=== PATIENT | female | born 1955 | race Caucasian/White ===

== ENCOUNTER 2018-06-02 11:36 | Inpatient (IN) | payer OTHER ==
[~2018-06-02 11:36] MED LIST: CEFAZOLIN 1 GM/D5W 1 GM/50 ML BAG IVPB ONE; VANCOMYCIN 1 GRAM (PRE-DOCKED) 1,000 MG/250 ML BAG IVPB ONE
[2018-06-02 12:24] VITALS: BMI 26.3
[2018-06-02] MEDS ORDERED: BUPIVACAINE LIPOSOME/PF (EXPAREL) 266 MG/20 ML VIAL ONE (13:08)
[2018-06-02] MEDS ORDERED: MIDAZOLAM HCL 2 MG/2 ML SINGLE DOSE VIAL ONE (13:08)
[2018-06-02] MEDS ORDERED: BUPIVACAINE HCL/PF 0.5% (5MG/ML) 10 ML VIAL ONE (13:40)
[2018-06-02] MEDS ORDERED: SUCCINYLCHOLINE CHLORIDE 200 MG/10 ML VIAL ONE (13:43)
[2018-06-02] MEDS ORDERED: PROPOFOL 20 ML ONE ×2 (13:43→14:38)
[2018-06-02] MEDS ORDERED: ceFAZolin SODIUM 1 GM VIAL ONE (13:56)
[2018-06-02] MEDS ORDERED: ONDANSETRON 4 MG/2 ML VIAL ONE (13:56)
[2018-06-02] MEDS ORDERED: DEXAMETHASONE SOD PHOSPHATE 4 MG/1 ML VIAL ONE (13:56)
[2018-06-02] MEDS ORDERED: VANCOMYCIN 1,000 MG VIAL (RESTRICTED TO ID ONLY) ONE (14:30)
--- NOTE | 2018-06-02 15:59 | PN ---
Progress Note (short form) - Note Progress Note: 63F s/p RIGHT total knee replacement POD #0. -Pain control. -DVT PPx: -Chemical: Restart Plavix. -Mechanical: MARIPOSA's, SCD's. -Incentive spirometry q15 min. -PT/OT/Rehab, OOB. -WBAT RLE. -Antibiotics: Ancef x 2 post op doses. -f/u post-op trial of void. -f/u drain output; ok to d/c when <30cc/8 hrs. -Diet as tolerated. -Keep dressing clean & dry. -Care per medical hospitalist team. -f/u [facility] [place] office 06/11/2017; call for appointment; . -Will follow. Donald Fishman MD (Orthopaedic Surgery).
--- NOTE | 2018-06-02 16:02 | OP ---
Operative Note - Note: Operative Date: 06/02/18 Pre-Operative Diagnosis: Right knee DJD Operation: Right TKA Implants: Fabiana Triathlon Cementless. Femur - 5. Tibia - 4, CR. Poly - 9mm , CS. Patella - 31mm, symmetric Post-Operative Diagnosis: Same as Pre-op Surgeon: Donald Fishman Rail Assembler: Landry Fishman Anesthesiologist/RIPENING ROOM ATTENDANT: Wilman Abad Anesthesia: Spinal Specimens Removed: Bone, soft tissue Estimated Blood Loss (mls): 50 Drains & Tubes with Location: 1 x deep HemoVac Fluid Volume Replaced (mls): 1,000 (Crystalloid) Operative Report Dictated: Yes
[2018-06-02] MEDS ORDERED: MAG HYDROX/AL HYDROX/SIMETH 30 ML UNIT-DOSE CUP PO PRN (16:03)
[2018-06-02] MEDS ORDERED: ONDANSETRON 4 MG/2 ML VIAL IVPUSH PRN ×2 (16:03→16:11)
[2018-06-02] MEDS ORDERED: MAGNESIUM HYDROX 2400MG/30ML ORAL SUSPENSION 30 ML CUP PO PRN (16:03)
[2018-06-02] MEDS ORDERED: oxyCODONE HCL 5 MG TABLET PO PRN (16:11)
[2018-06-02] MEDS ORDERED: PROMETHAZINE HCL 25 MG/1 ML VIAL IVPUSH PRN (16:11)
[2018-06-02] MEDS ORDERED: EXENATIDE MICROSPHERES 2 MG SQ SCH (16:15)
[2018-06-02] MEDS ORDERED: LACTATED RINGERS SOLUTION 1,000 ML IV SCH (16:15)
[2018-06-02] MEDS ORDERED: ACETAMINOPHEN 325 MG TABLET (FP) ONE (16:41)
--- NOTE | 2018-06-02 16:56 | CONSULT ---
Consultation: REQUESTING PROVIDER: Dr. Donald Fishman CONSULT REQUEST: We have been asked to medically evaluate this patient post- operatively. HISTORY OF PRESENT ILLNESS: 63 year-old female with a PMH significant for HTN, DM, hypothyroidism, PAD s/p right SFA stent on Plavix, right knee degenerative disease s/p right total knee replacement earlier today. REVIEW OF SYSTEMS: CONSTITUTIONAL: Absent: fever, chills, diaphoresis, generalized weakness, malaise, loss of appetite, weight change HEENT: Absent: rhinorrhea, nasal congestion, throat pain, throat swelling, difficulty swallowing, mouth swelling, ear pain, eye pain, visual changes CARDIOVASCULAR: Absent: chest pain, syncope, palpitations, irregular heart rate, lightheadedness , peripheral edema RESPIRATORY: Absent: cough, shortness of breath, dyspnea with exertion, orthopnea, wheezing, stridor, hemoptysis GASTROINTESTINAL: Absent: abdominal pain, abdominal distension, nausea, vomiting, diarrhea, constipation, melena, hematochezia GENITOURINARY: Absent: dysuria, frequency, urgency, hesitancy, hematuria, flank pain, genital pain MUSCULOSKELETAL: Absent: myalgia, arthralgia, joint swelling, back pain, neck pain SKIN: Absent: rash, itching, pallor HEMATOLOGIC/IMMUNOLOGIC: Absent: easy bleeding, easy bruising, lymphadenopathy, frequent infections ENDOCRINE: Absent: unexplained weight gain, unexplained weight loss, heat intolerance, cold intolerance NEUROLOGIC: Absent: headache, focal weakness or paresthesias, dizziness, unsteady gait, seizure, mental status changes, bladder or bowel incontinence PSYCHIATRIC: Absent: anxiety, depression, suicidal or homicidal ideation, hallucinations. PHYSICAL EXAMINATION Vital Signs - 24 hr 06/02/18 06/02/18 06/02/18 11:41 12:22 12:23 Temperature 98.9 F 98.9 F Pulse Rate 75 75 75 Respiratory 19 19 19 Rate Blood Pressure 121/73 121/73 121/73 GENERAL: Awake, alert, and fully oriented, in no acute distress. HEAD: Normal with no signs of trauma. EYES: Pupils equal, round and reactive to light, extraocular movements intact, sclera anicteric, conjunctiva clear. LUNGS: Breath sounds equal, clear to auscultation bilaterally. No wheezes, and no crackles. No accessory muscle use. HEART: Regular rate and rhythm, S1 and S2 ABDOMEN: Soft, nontender, not distended UPPER EXTREMITIES: 2+ pulses, warm, well-perfused. No cyanosis. No clubbing. Cap refill <2 seconds. No peripheral edema. LOWER EXTREMITIES: SCDs, TEDs bilaterally; surgical wrapping c/d/i right knee; Hemovac drain with dark sanguinous output ~350cc's NEUROLOGICAL: Cranial nerves II-XII intact. Normal speech Laboratory Results - last 24 hr 06/02/18 12:20 POC Glucometer 102 Active Medications Generic Name Dose Route Start Last Admin Trade Name Freq PRN Reason Stop Dose Admin Acetaminophen 650 mg 06/02/18 16:15 Tylenol - PO 06/05/18 16:14 Q6H HUYEN Al Hydroxide/Mg Hydroxide 30 ml 06/02/18 16:03 Mylanta Oral Suspension - PO Q4H PRN DYSPEPSIA Aspirin 81 mg 06/03/18 10:00 Asa - PO DAILY [facility] Atorvastatin Calcium 10 mg 06/02/18 22:00 Lipitor - PO HS [facility] Clopidogrel Bisulfate 75 mg 06/03/18 10:00 Plavix - PO DAILY [facility] Duloxetine HCl 20 mg 06/03/18 10:00 Cymbalta - PO DAILY [facility] Fenofibric Acid 45 mg 06/03/18 10:00 Trilipix - PO DAILY [facility] Fentanyl 50 mcg 06/02/18 16:11 Sublimaze Injection - IVPUSH [id number] PRN PAIN-PACU ORDER X 4 DOSES ONLY Glipizide 2.5 mg 06/03/18 10:00 Glucotrol Xl - PO DAILY@0700 [facility] Hydrochlorothiazide 25 mg 06/03/18 10:00 Hctz - PO DAILY [facility] Cefazolin Sodium 1 gm in 50 mls @ 100 mls/hr 06/02/18 18:00 Ancef 1 Gm Premixed Ivpb - IVPB 06/03/18 02:29 Q8H-IV [facility] Lactated Ringer's 1,000 mls @ 125 mls/hr 06/02/18 16:15 Lactated Ringers Solution IV 06/03/18 06:00 ASDIR [facility] Insulin Detemir 15 units 06/02/18 22:00 Levemir Vial SQ HS [facility] Lisinopril 20 mg 06/03/18 10:00 Prinivil PO DAILY [facility] Magnesium Hydroxide 30 ml 06/02/18 16:03 Milk Of Magnesia - PO PRN PRN CONSTIPATION Non-Formulary Medication 2 mg 06/02/18 16:15 Exenatide Microspheres [Bydureon Pen] SQ Q7D [facility] Ondansetron HCl 4 mg 06/02/18 16:03 Zofran Injection IVPUSH Q6H PRN NAUSEA Oxycodone HCl 5 mg 06/02/18 16:11 Roxicodone - PO Q3H PRN PAIN LEVEL 1-5 Oxycodone HCl 10 mg 06/02/18 16:11 Roxicodone - PO Q3H PRN PAIN LEVEL 6-10 Oxycodone HCl 10 mg 06/02/18 22:00 Oxycontin - PO 06/05/18 16:12 BID [facility] Pantoprazole Sodium 40 mg 06/03/18 10:00 Protonix - PO DAILY [facility] Promethazine HCl 12.5 mg 06/02/18 16:11 Phenergan Injection - IVPUSH Q6H PRN NAUSEA-FOR RESCUE AFTER 15 MIN Senna/Docusate Sodium 1 tablet 06/02/18 22:00 Pericolace - PO BID [facility] ASSESSMENT/PLAN: 63 year-old female with a PMH significant for HTN, IDDM, hypothyroidism, PAD s/ p right SFA stent on Plavix, right knee degenerative disease s/p right total knee replacement earlier today. Right total knee replacement --POD #0 --Hemovac put out 350cc's dark sanguinous fluid in 45 minutes after arriving on floor; stat cbc done shows Hgb 14.4; repeat cbc q4h; type and screen --borderline hypotensive; give NS x 1L bolus --perioperative antibiotics per surgery --pain management per surgery --ASA 81mg daily --continue Plavix Type II IDDM --Levemir 15U --Novolog sliding scale coverage Hypertension --hold anti-hypertensives, lasix due to hypotension Hyperlipidemia --continue atorvastatin, fenofibric acid FEN Fluids: NS @ 75mL/hr Electrolytes: replete as indicated Nutrition: diabetic DVT prophylaxis: ASA 81mg daily, Plavix, SCDs, TEDs, oob, ambulation Physical therapy Dispo: We will continue to follow the patient. Thank you for this consultative opportunity. Visit type - Emergency Visit Emergency Visit: No - New Patient This patient is new to me today: Yes Date on this admission: 06/02/18 - Critical Care Critical Care patient: No
[2018-06-02] MEDS ORDERED: CEFAZOLIN 1 GM/D5W 1 GM/50 ML BAG IVPB SCH (18:00)
--- NOTE | 2018-06-02 18:36 | OP ---
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 OPERATION PERFORMED: Incision and drainage, debridement of tissues, insertion of a wound VAC after extensive washout with 5 L of saline, cleansing of the tissues with Betadine scrub to remove biofilm and preoperative and postoperative cultures taken, wound VAC applied. OPERATION DETAILS: Patient brought to the operating room, placed in lateral decubitus position left side up. The routine bolster technique utilized. A pillow was placed between the knees. The original dressings were removed. The wounds appeared with usual shiny exudative seropurulent appearance. Cultures were sent to the Lab. Washout was after routine isolation draping in a window drape fashion enabling a thorough washout. The tissue was then cleansed and washed with Betadine scrub to rid all tissues, including the remaining implant, which was an endoprosthetic implant in the femoral bone bed to be cleansed appropriately of and rid of all biofilm. Further 5 L of washing out was then performed. Sponges were placed for the wound VAC in situ filling the entire cavity. This was all sealed with the appropriate stick-on plastic sealants, and the wound VAC started with successful suction being applied appropriately. Patient was extricated out of the OR hoping to be able to close this wound soon. MD ADEBAYO Soler/[id number]
--- NOTE | 2018-06-02 19:03 | OP ---
DATE OF OPERATION: 06/02/2018 SURGEON: Donald Fishman M.D. [employer]ION SUPPORT SPECIALIST: Landry Fishman M.D., Nori Hernandez. PREOPERATIVE DIAGNOSIS: Tricompartment osteoarthritis right knee. POSTOPERATIVE DIAGNOSIS: Tricompartment osteoarthritis right knee in the presence of a wound in a patient who had a previous stent in the superficial femoral artery on Plavix, (now off Plavix for 3 weeks). No tourniquet utilized. ANTIBIOTICS IN PREOPERATIVE: 2 g Kefzol, 1 g vancomycin. DESCRIPTION OF PROCEDURE: The patient was correctly identified, brought in operating room. The right lower extremity was prepped, pre-draped in the routine manner with Betadine scrub solution, wiped with alcohol, DuraPrep applied. Indication, patient had continuous osteoarthritis right knee for symptoms which all failed conservative treatment, but because of the stenting inserted prior to this procedure, it was elected to not apply a tourniquet. The incision was midline. Hemostasis was achieved, as we went along layer for layer. Skin operated with a 15 blade knife , subcutaneous tissue right down to the entire thigh fascia. The medial border of the tibial tubercle and medial aspect of the patella ligament was identified with Bovie. The entire proximal aspect of the tibia was freed off the bone bed and the incision from tibial tubercle alongside the medial border of the patella ligament, and then crossing directly posteriorly to the linea aspera and the intramuscular septum enabled an easy access to the vastus medialis. The epimysium of the vastus medialis was dissected from the quadriceps tendon right down to virtually linea aspera, thus freeing the entire muscle. Hemostasis achieved as best we could as we went along. Because of the lack of tourniquet, it was elected to insert noncemented implants. The appropriate jig systems for the patella, femur, and tibia were utilized. The femur was cut to plus 10, that is 2 mm proximalization of the joint line because of fixation deformity. The external rotation was set at 3 degrees, and the valgus cut was 4 degrees. The tibia was cut to neutral. The appropriate jigs followed the appropriate seating of the tibia inserted, that is the keal and 4 lugholes. Once this had been performed, the flexion/extension gaps were measured, and the trialing components measured. The size femur was a size 5, the tibia was size 4. The knee was placed through a full range of movement with no complications with a 9 mm polyethylene spacer appropriately. As a result of this finding, the soft tissue components of the bone bed were washed out. The bony elements were left alone, no washout, for fear of removing biological products, and the implants were seated with appropriate impaction of the implants and seated accurately onto the bone beds appropriately. The patella tracked well without any thumb persuasion. Closure : Fascia 1 Vicryl, subcutaneous 1 and 2-0 Vicryl, skin 3-0 Monocryl with Steri- Strips, drainage one 8-inch Hemovac x1. No complications. Blood loss minimal, no more than 100 mL. MD ADEBAYO Soler/[id number] MTDD
[2018-06-02] MEDS: oxyCODONE HCL 5 MG TABLET PO PRN (19:35)
[2018-06-02] MEDS ORDERED: SODIUM CHLORIDE 1,000 ML IV STA (19:49)
[2018-06-02 19:52] LABS: BASO % 0.2 % (0-2.0); EOS % 0.2 % (0-4.5); HEMATOCRIT 44.5 % (32.4-45.2); HEMOGLOBIN 14.4 GM/dl (10.7-15.3); LYMPH % 9.7 % (8-40); MCHC 32.4 g/dl (32.0-36.0); MEAN CELL VOLUME 92.5 fl (80-96); MEAN PLT VOLUME 9.4 fl (7.5-11.1); MONO % 0.7 % (3.8-10.2); NEUT % 89.2 % (42.8-82.8); PLATELET COUNT 315 K/MM3 (134-434); RBC 4.81 M/mm3 (3.60-5.2); RDW 12.8 % (11.6-15.6); WHITE BLOOD COUNT 13.7 K/mm3 (4.0-10.8)
[2018-06-02] MEDS ORDERED: SODIUM CHLORIDE 1,000 ML IV SCH (20:00)
[2018-06-02 20:08] LABS: ALBUMIN 3.8 g/dl (3.5-5.0); ALK PHOS 85 U/L (32-92); ANION GAP 10 MMOL/L (8-16); BILIRUBIN,TOTAL 0.8 mg/dl (0.2-1.0); BLOOD UREA NITROGEN 23 mg/dl (7-18); CALCIUM 9.2 mg/dl (8.4-10.2); CHLORIDE 102 mmol/L (98-107); CO2 24 mmol/L (22-28); GLUCOSE,RANDOM 210 mg/dl (74-106); MAGNESIUM 1.9 mg/dL (1.8-2.4); POTASSIUM 4.7 mmol/L (3.5-5.1); SGOT/AST 18 U/L (10-42); SGPT/ALT 13 U/L (10-40); SODIUM 136 mmol/L (136-145); TOT PROT 6.4 g/dl (6.4-8.3)
[2018-06-02] MEDS: ATORVASTATIN CA 10 MG TABLET (FP) PO SCH (21:49)
[2018-06-02] MEDS: ACETAMINOPHEN 325 MG TABLET (FP) PO SCH (21:49)
[2018-06-02] MEDS: oxyCODONE HCL 10 MG SUSTAINED ACTING TABLET PO SCH (21:50)
[2018-06-02] MEDS: INSULIN SLIDING SCALE (NOVOLOG) 1 VIAL SQ SCH (21:50)
[2018-06-02] MEDS: INSULIN (LEVEMIR) 100 UNITS/ML UNITS SQ SCH (21:51)
[2018-06-02] MEDS: SENNOSIDES/DOCUSATE COMBO (SENNA PLUS) TABLET (UD) PO SCH (21:51)
[2018-06-02] MEDS ORDERED: PATIENT'S OWN MEDICATION (NON-FORMULARY) (Insulin Detemir [Levemir Flextouch] 15 UNIT) SQ SCH (22:00)
[2018-06-02] MEDS: CEFAZOLIN 1 GM/D5W 1 GM/50 ML BAG IVPB SCH (22:23)
[2018-06-02 22:48] LABS: HEMATOCRIT 37.2 % (32.4-45.2); HEMOGLOBIN 12.1 GM/dl (10.7-15.3); MCH 30.2 pg (25.7-33.7); MCHC 32.7 g/dl (32.0-36.0); MEAN CELL VOLUME 92.4 fl (80-96); MEAN PLT VOLUME 8.9 fl (7.5-11.1); PLATELET COUNT 269 K/MM3 (134-434); RBC 4.02 M/mm3 (3.60-5.2); RDW 12.5 % (11.6-15.6); WHITE BLOOD COUNT 12.7 K/mm3 (4.0-10.8)
[2018-06-03] MEDS: oxyCODONE HCL 5 MG TABLET PO PRN ×4 (03:11→21:02)
[2018-06-03 04:01] LABS: HEMATOCRIT 32.7 % (32.4-45.2); HEMOGLOBIN 11.6 GM/dL (10.7-15.3); MCH 31.6 pg (25.7-33.7); MCHC 35.5 g/dl (32.0-36.0); PLATELET COUNT 273 K/MM3 (134-434); RBC 3.68 M/mm3 (3.60-5.2); RDW 13.3 % (11.6-15.6); WHITE BLOOD COUNT 11.5 K/mm3 (4.0-10.0)
[2018-06-03] MEDS: INSULIN SLIDING SCALE (NOVOLOG) 1 VIAL SQ SCH ×4 (06:27→21:43)
[2018-06-03] MEDS: ACETAMINOPHEN 325 MG TABLET (FP) PO SCH ×4 (06:28→21:45)
[2018-06-03] MEDS: CEFAZOLIN 1 GM/D5W 1 GM/50 ML BAG IVPB SCH (06:33)
[2018-06-03 08:08] LABS: BASO % 0.3 % (0-2.0); EOS % 0.1 % (0-4.5); HEMATOCRIT 34.9 % (32.4-45.2); HEMOGLOBIN 11.4 GM/dl (10.7-15.3); LYMPH % 14.1 % (8-40); MCH 30.1 pg (25.7-33.7); MCHC 32.5 g/dl (32.0-36.0); MEAN CELL VOLUME 92.5 fl (80-96); MONO % 5.8 % (3.8-10.2); NEUT % 79.7 % (42.8-82.8); PLATELET COUNT 290 K/MM3 (134-434); RBC 3.78 M/mm3 (3.60-5.2); RDW 12.7 % (11.6-15.6); WHITE BLOOD COUNT 11.1 K/mm3 (4.0-10.8)
[2018-06-03 08:11] LABS: INR 1.16 (0.82-1.09)
[2018-06-03 08:26] LABS: ALBUMIN 3.1 g/dl (3.5-5.0); ALK PHOS 64 U/L (32-92); ANION GAP 6 MMOL/L (8-16); BILIRUBIN,TOTAL 0.7 mg/dl (0.2-1.0); BLOOD UREA NITROGEN 21 mg/dl (7-18); CALCIUM 8.6 mg/dl (8.4-10.2); CHLORIDE 105 mmol/L (98-107); CO2 25 mmol/L (22-28); CREATININE 0.9 mg/dl (0.6-1.3); GLUCOSE,RANDOM 181 mg/dl (74-106); MAGNESIUM 1.7 mg/dL (1.8-2.4); POTASSIUM 4.4 mmol/L (3.5-5.1); SGOT/AST 17 U/L (10-42); SGPT/ALT 11 U/L (10-40); SODIUM 136 mmol/L (136-145); TOT PROT 5.4 g/dl (6.4-8.3)
--- NOTE | 2018-06-03 08:51 | PN ---
Progress Note (short form) - Note Progress Note: 63F s/p Right knee replacement, seen sitting up in chair. Pt states that her pain has been well controlled, she has walked to the bathroom with help. Pt denies any fever, chills, n/v. Pt is urinating well. Last Vital Signs Temp Pulse Resp BP Pulse Ox 98.3 F 75 20 115/57 L 100 06/03/18 06:00 06/03/18 06:00 06/03/18 08:06 06/03/18 06:00 06/03/18 08:06 CBC, BMP 06/03/18 07:35 06/03/18 07:35 PE: Gen: A&O x3 Resp: breathing comfortably Ext: RLE no weakness or numbness, dressing in place clean with no erythema or discharge. Drain shows serosanguinous drainage. Out: 660ml Problem List - Problems (1) Total knee replacement status Assessment/Plan: Plan -will keep drain in until tomorrow -follow up with PT today -pt states would really like to be discharged home, will see how she does with PT -pain management, -DVT ppx
--- NOTE | 2018-06-03 09:43 | PN ---
Progress Note (short form) - Note Progress Note: 63F POD1 s/p R TKR under spinal anesthetic with peripheral nerve blocks for post operative pain relief. Pt states that pain is well controlled and reports no anesthetic complications. AVSS. Motor and sensory exam intact in bilateral lower extremities. Continue current regimen.
[2018-06-03] MEDS ORDERED: PT OWN MED DRAWER 7, Y5N ONE (09:44)
[2018-06-03] MEDS: SENNOSIDES/DOCUSATE COMBO (SENNA PLUS) TABLET (UD) PO SCH ×2 (09:49→21:03)
[2018-06-03] MEDS: oxyCODONE HCL 10 MG SUSTAINED ACTING TABLET PO SCH ×2 (09:50→21:03)
[2018-06-03] MEDS ORDERED: DULoxetine HCL 20 MG CAPSULE.DR (FP) PO SCH (10:00)
[2018-06-03] MEDS ORDERED: ASPIRIN 81 MG CHEWABLE TABLETS PO SCH (10:00)
[2018-06-03] MEDS ORDERED: HYDROCHLOROTHIAZIDE 25 MG TABLET (FP) PO SCH ×2 (10:00→18:45)
[2018-06-03] MEDS ORDERED: PANTOPRAZOLE 40 MG TABLET (FP) PO SCH (10:00)
[2018-06-03] MEDS ORDERED: LISINOPRIL 20 MG TABLET (FP) PO SCH (10:00)
[2018-06-03] MEDS ORDERED: FENOFIBRIC ACID 45 MG CAP PO SCH (10:00)
[2018-06-03] MEDS ORDERED: glipiZIDE-XL 2.5 MG TAB.ER.24 PO SCH (10:00)
[2018-06-03] MEDS ORDERED: CLOPIDOGREL BISULFATE 75 MG TABLET (FP) PO SCH (10:00)
[2018-06-03] MEDS ORDERED: PATIENT'S OWN MEDICATION (NON-FORMULARY) (Lisinopril/Hydrochlorothiazide [Lisinopril-Hctz PO SCH (10:00)
[2018-06-03] MEDS ORDERED: INSULIN (NOVOLOG) ASPART 100 UNITS/ML 10ML VIAL ONE (16:56)
--- NOTE | 2018-06-03 18:16 | PN ---
Physical Exam: SUBJECTIVE: Patient seen and examined in PT room. Some pain with PT but pushed through. OBJECTIVE: Vital Signs Period Temp Pulse Resp BP Sys/[place] Pulse Ox Last 24 Hr 97.8 F-98.6 F 66-90 18-20 103-142/54-67 97-100 GENERAL: Awake, alert, and fully oriented, in no acute distress. HEAD: Normal with no signs of trauma. EYES: Pupils equal, round and reactive to light, extraocular movements intact, sclera anicteric, conjunctiva clear. LUNGS: Breath sounds equal, clear to auscultation bilaterally. No wheezes, and no crackles. No accessory muscle use. HEART: Regular rate and rhythm, S1 and S2 ABDOMEN: Soft, nontender, not distended UPPER EXTREMITIES: 2+ pulses, warm, well-perfused. No cyanosis. No clubbing. Cap refill <2 seconds. No peripheral edema. LOWER EXTREMITIES: SCDs, TEDs bilaterally; surgical wrapping c/d/i right knee NEUROLOGICAL: Cranial nerves II-XII intact. Normal speech Laboratory Results - last 24 hr 06/02/18 06/02/18 06/02/18 19:30 19:30 19:30 WBC 13.7 H RBC 4.81 Hgb 14.4 Hct 44.5 MCV 92.5 MCH 30.0 MCHC 32.4 RDW 12.8 Plt Count 315 MPV 9.4 Absolute Neuts (auto) 12.3 Neutrophils % 89.2 H Lymphocytes % 9.7 Monocytes % 0.7 L Eosinophils % 0.2 Basophils % 0.2 PT with INR INR PTT (Actin FS) Sodium 136 Potassium 4.7 Chloride 102 Carbon Dioxide 24 Anion Gap 10 BUN 23 H Creatinine 1.0 Creat Clearance w eGFR 56.00 POC Glucometer Random Glucose 210 H Calcium 9.2 Magnesium 1.9 Total Bilirubin 0.8 AST 18 ALT 13 Alkaline Phosphatase 85 Total Protein 6.4 Albumin 3.8 Blood Type O POSITIVE Antibody Screen Negative 06/02/18 06/02/18 06/02/18 19:30 21:41 22:30 WBC 12.7 H RBC 4.02 Hgb 12.1 Hct 37.2 D MCV 92.4 MCH 30.2 MCHC 32.7 RDW 12.5 Plt Count 269 MPV 8.9 Absolute Neuts (auto) Neutrophils % Lymphocytes % Monocytes % Eosinophils % Basophils % PT with INR INR PTT (Actin FS) 26.2 Sodium Potassium Chloride Carbon Dioxide Anion Gap BUN Creatinine Creat Clearance w eGFR POC Glucometer 363 Random Glucose Calcium Magnesium Total Bilirubin AST ALT Alkaline Phosphatase Total Protein Albumin Blood Type Antibody Screen 06/03/18 06/03/18 06/03/18 03:00 03:00 06:26 WBC 11.5 H RBC 3.68 Hgb 11.6 Hct 32.7 MCV 89.0 MCH 31.6 MCHC 35.5 RDW 13.3 Plt Count 273 MPV 9.0 Absolute Neuts (auto) Neutrophils % Lymphocytes % Monocytes % Eosinophils % Basophils % PT with INR INR PTT (Actin FS) Sodium Potassium Chloride Carbon Dioxide Anion Gap BUN Creatinine Creat Clearance w eGFR POC Glucometer 184 Random Glucose Calcium Magnesium Total Bilirubin AST ALT Alkaline Phosphatase Total Protein Albumin Blood Type O POSITIVE Antibody Screen 06/03/18 06/03/18 06/03/18 07:35 07:35 07:35 WBC 11.1 H RBC 3.78 Hgb 11.4 Hct 34.9 MCV 92.5 MCH 30.1 MCHC 32.5 RDW 12.7 Plt Count 290 MPV 9.0 Absolute Neuts (auto) 8.9 Neutrophils % 79.7 Lymphocytes % 14.1 Monocytes % 5.8 Eosinophils % 0.1 Basophils % 0.3 PT with INR 13.0 INR 1.16 PTT (Actin FS) Sodium 136 Potassium 4.4 Chloride 105 Carbon Dioxide 25 Anion Gap 6 L BUN 21 H Creatinine 0.9 Creat Clearance w eGFR > 60 POC Glucometer Random Glucose 181 H Calcium 8.6 Magnesium 1.7 L Total Bilirubin 0.7 AST 17 ALT 11 Alkaline Phosphatase 64 D Total Protein 5.4 L Albumin 3.1 L Blood Type Antibody Screen 06/03/18 06/03/18 11:09 16:53 WBC RBC Hgb Hct MCV MCH MCHC RDW Plt Count MPV Absolute Neuts (auto) Neutrophils % Lymphocytes % Monocytes % Eosinophils % Basophils % PT with INR INR PTT (Actin FS) Sodium Potassium Chloride Carbon Dioxide Anion Gap BUN Creatinine Creat Clearance w eGFR POC Glucometer 180 229 Random Glucose Calcium Magnesium Total Bilirubin AST ALT Alkaline Phosphatase Total Protein Albumin Blood Type Antibody Screen Active Medications Generic Name Dose Route Start Last Admin Trade Name Freq PRN Reason Stop Dose Admin Acetaminophen 650 mg 06/02/18 16:15 06/03/18 16:58 Tylenol - PO 06/05/18 16:14 650 mg Q6H HUYEN Administration Al Hydroxide/Mg Hydroxide 30 ml 06/02/18 16:03 Mylanta Oral Suspension - PO Q4H PRN DYSPEPSIA Aspirin 81 mg 06/03/18 10:00 06/03/18 09:49 Asa - PO 81 mg DAILY HUYEN Administration Atorvastatin Calcium 10 mg 06/02/18 22:00 06/02/18 21:49 Lipitor - PO 10 mg HS HUYEN Administration Clopidogrel Bisulfate 75 mg 06/03/18 10:00 06/03/18 09:49 Plavix - PO 75 mg DAILY HUYEN Administration Duloxetine HCl 20 mg 06/03/18 10:00 06/03/18 09:49 Cymbalta - PO 20 mg DAILY HUYEN Administration Fenofibric Acid 45 mg 06/03/18 10:00 06/03/18 09:50 Trilipix - PO 45 mg DAILY HUYEN Administration Sodium Chloride 1,000 mls @ 75 mls/hr 06/02/18 20:00 06/02/18 21:59 Normal Saline - IV 75 mls/hr ASDIR HUYEN Administration Insulin Aspart 1 vial 06/02/18 22:00 06/03/18 16:58 Novolog Vial Sliding Scale - SQ 4 units ACHS HUYEN Administration Protocol Insulin Detemir 15 units 06/02/18 22:00 06/02/18 21:51 Levemir Vial SQ 15 units HS HUYEN Administration Magnesium Hydroxide 30 ml 06/02/18 16:03 Milk Of Magnesia - PO PRN PRN CONSTIPATION Ondansetron HCl 4 mg 06/02/18 16:03 06/03/18 12:34 Zofran Injection IVPUSH 4 mg Q6H PRN Administration NAUSEA Oxycodone HCl 5 mg 06/02/18 16:11 Roxicodone - PO Q3H PRN PAIN LEVEL 1-5 Oxycodone HCl 10 mg 06/02/18 16:11 06/03/18 11:06 Roxicodone - PO 10 mg Q3H PRN Administration PAIN LEVEL 6-10 Oxycodone HCl 10 mg 06/02/18 22:00 06/03/18 09:50 Oxycontin - PO 06/05/18 16:12 10 mg BID HUYEN Administration Pantoprazole Sodium 40 mg 06/03/18 10:00 06/03/18 09:49 Protonix - PO 40 mg DAILY HUYEN Administration Senna/Docusate Sodium 1 tablet 06/02/18 22:00 06/03/18 09:49 Pericolace - PO 1 tablet BID HUYEN Administration ASSESSMENT/PLAN: 63 year-old female with a PMH significant for HTN, IDDM, hypothyroidism, PAD s/ p right SFA stent on Plavix, right knee degenerative disease s/p right total knee replacement earlier today. Right total knee replacement --POD #1 --post-op hypotension resolved with IV fluids; Hgb stable --Hemovac drain still in situ 245cc's output today --perioperative antibiotics complete --pain management per surgery --ASA 81mg daily --continue Plavix --bowel regimen Type II IDDM --Levemir 15U --Novolog sliding scale coverage Hypertension --resume lisinopril, HCTZ Hyperlipidemia --continue atorvastatin, fenofibric acid FEN Fluids: PO intake adequate Electrolytes: replete as indicated Nutrition: diabetic DVT prophylaxis: ASA 81mg daily, SCDs, TEDs, oob, ambulation Physical therapy Dispo: We will continue to follow the patient. Thank you for this consultative opportunity. Visit type - Emergency Visit Emergency Visit: No - New Patient This patient is new to me today: No - Critical Care Critical Care patient: No
[2018-06-03] MEDS ORDERED: ALBUTEROL SO4 8 GM HFA INHALER IH PRN (18:22)
[2018-06-03] MEDS ORDERED: LISINOPRIL 10 MG TABLET (FP) PO SCH (18:45)
[2018-06-03] MEDS: ATORVASTATIN CA 10 MG TABLET (FP) PO SCH (21:03)
[2018-06-03] MEDS: INSULIN (LEVEMIR) 100 UNITS/ML UNITS SQ SCH (21:46)
[2018-06-03] MEDS ORDERED: POLYETHYLENE GLYCOL 3350 119 GM BTL PO SCH (22:00)
[2018-06-03] MEDS ORDERED: DOCUSATE SODIUM 100 MG CAPSULE (FP) PO SCH (22:00)
[2018-06-04] MEDS: oxyCODONE HCL 5 MG TABLET PO PRN (01:08)
[2018-06-04] MEDS: ACETAMINOPHEN 325 MG TABLET (FP) PO SCH (04:24)
[2018-06-04 06:44] VITALS: BP 121/63; PULSE 83; TEMP 98.6
[2018-06-04] MEDS: INSULIN SLIDING SCALE (NOVOLOG) 1 VIAL SQ SCH (06:54)
--- NOTE | 2018-06-04 08:36 | PN ---
Physical Exam: SUBJECTIVE: Patient seen and examined OBJECTIVE: Vital Signs Period Temp Pulse Resp BP Sys/[place] Pulse Ox Last 24 Hr 98.3 F-98.6 F 66-83 16-19 103-140/52-64 96-100 Laboratory Results - last 24 hr 06/03/18 06/03/18 06/03/18 11:09 16:53 21:32 POC Glucometer 180 229 150 06/04/18 06:43 POC Glucometer 141 Active Medications Generic Name Dose Route Start Last Admin Trade Name Freq PRN Reason Stop Dose Admin Acetaminophen 650 mg 06/02/18 16:15 06/04/18 04:24 Tylenol - PO 06/05/18 16:14 650 mg Q6H HUYEN Administration Al Hydroxide/Mg Hydroxide 30 ml 06/02/18 16:03 Mylanta Oral Suspension - PO Q4H PRN DYSPEPSIA Albuterol Sulfate 1 puff 06/03/18 18:22 Ventolin Hfa Inhaler - IH Q4H PRN ASTHMA Aspirin 81 mg 06/03/18 10:00 06/03/18 09:49 Asa - PO 81 mg DAILY HUYEN Administration Atorvastatin Calcium 10 mg 06/02/18 22:00 06/03/18 21:03 Lipitor - PO 10 mg HS HUYEN Administration Clopidogrel Bisulfate 75 mg 06/03/18 10:00 06/03/18 09:49 Plavix - PO 75 mg DAILY HUYEN Administration Docusate Sodium 300 mg 06/03/18 22:00 06/03/18 21:03 Colace - PO 300 mg HS HUYEN Administration Duloxetine HCl 20 mg 06/03/18 10:00 06/03/18 09:49 Cymbalta - PO 20 mg DAILY HUYEN Administration Fenofibric Acid 45 mg 06/03/18 10:00 06/03/18 09:50 Trilipix - PO 45 mg DAILY HUYEN Administration Hydrochlorothiazide 25 mg 06/03/18 18:45 06/03/18 19:13 Hctz - PO Not Given DAILY HUYEN Insulin Aspart 1 vial 06/02/18 22:00 06/04/18 06:54 Novolog Vial Sliding Scale - SQ Not Given ACHS [facility] Protocol Insulin Detemir 15 units 06/02/18 22:00 06/03/18 21:46 Levemir Vial SQ 15 units HS HUYEN Administration Lisinopril 20 mg 06/04/18 08:33 Prinivil PO DAILY HUYEN Magnesium Hydroxide 30 ml 06/02/18 16:03 Milk Of Magnesia - PO PRN PRN CONSTIPATION Ondansetron HCl 4 mg 06/02/18 16:03 06/03/18 12:34 Zofran Injection IVPUSH 4 mg Q6H PRN Administration NAUSEA Oxycodone HCl 5 mg 06/02/18 16:11 Roxicodone - PO Q3H PRN PAIN LEVEL 1-5 Oxycodone HCl 10 mg 06/02/18 16:11 06/04/18 01:08 Roxicodone - PO 10 mg Q3H PRN Administration PAIN LEVEL 6-10 Oxycodone HCl 10 mg 06/02/18 22:00 06/03/18 21:03 Oxycontin - PO 06/05/18 16:12 10 mg BID HUYEN Administration Pantoprazole Sodium 40 mg 06/03/18 10:00 06/03/18 09:49 Protonix - PO 40 mg DAILY HUYEN Administration Polyethylene Glycol 17 gm 06/03/18 22:00 06/03/18 21:44 Miralax (For Daily Use) - PO 17 gm BID HUYEN Administration Senna/Docusate Sodium 1 tablet 06/02/18 22:00 06/03/18 21:03 Pericolace - PO 1 tablet BID HUYEN Administration ASSESSMENT/PLAN:
[2018-06-04] MEDS ORDERED: LISINOPRIL 20 MG TABLET (FP) PO SCH (08:45)
--- NOTE | 2018-06-04 11:16 | DS ---
Physical Exam: SUBJECTIVE: Patient seen and examined OBJECTIVE: Vital Signs Temperature 98.6 F 06/04/18 06:38 Pulse Rate 83 06/04/18 06:38 Respiratory Rate 18 06/04/18 06:38 Blood Pressure 121/63 06/04/18 06:38 O2 Sat by Pulse Oximetry (%) 96 06/04/18 06:38 PHYSICAL EXAM GENERAL: The patient is awake, alert, and fully oriented, in no acute distress. HEAD: Normal with no signs of trauma. EYES: PERRL, extraocular movements intact, sclera anicteric, conjunctiva clear. ENT: Ears normal, nares patent, oropharynx clear without exudates, moist mucous membranes. NECK: Trachea midline, full range of motion, supple. LUNGS: Breath sounds equal, clear to auscultation bilaterally, no wheezes, no crackles, no accessory muscle use. HEART: Regular rate and rhythm, S1, S2 without murmur, rub or gallop. ABDOMEN: Soft, nontender, nondistended, normoactive bowel sounds, no guarding, no rebound, no hepatosplenomegaly, no masses. EXTREMITIES: RLE with dressing c/d/i. 2+ pulses, warm, well-perfused. Ambulating with PT NEUROLOGICAL: Cranial nerves II through XII grossly intact. Normal speech, gait not observed. PSYCH: Normal mood, normal affect. SKIN: Warm, dry, normal turgor, no rashes or lesions noted. LABS CBC,CMP WBC 11.1 K/mm3 (4.0-10.8) H 06/03/18 07:35 RBC 3.78 M/mm3 (3.60-5.2) 06/03/18 07:35 Hgb 11.4 GM/dl (10.7-15.3) 06/03/18 07:35 Hct 34.9 % (32.4-45.2) 06/03/18 07:35 MCV 92.5 fl (80-96) 06/03/18 07:35 MCH 30.1 pg (25.7-33.7) 06/03/18 07:35 MCHC 32.5 g/dl (32.0-36.0) 06/03/18 07:35 RDW 12.7 % (11.6-15.6) 06/03/18 07:35 Plt Count 290 K/MM3 (134-434) 06/03/18 07:35 MPV 9.0 fl (7.5-11.1) 06/03/18 07:35 Absolute Neuts (auto) 8.9 K/mm3 06/03/18 07:35 Neutrophils % 79.7 % (42.8-82.8) 06/03/18 07:35 Lymphocytes % 14.1 % (8-40) 06/03/18 07:35 Monocytes % 5.8 % (3.8-10.2) 06/03/18 07:35 Eosinophils % 0.1 % (0-4.5) 06/03/18 07:35 Basophils % 0.3 % (0-2.0) 06/03/18 07:35 Sodium 136 mmol/L (136-145) 06/03/18 07:35 Potassium 4.4 mmol/L (3.5-5.1) 06/03/18 07:35 Chloride 105 mmol/L (98-107) 06/03/18 07:35 Carbon Dioxide 25 mmol/L (22-28) 06/03/18 07:35 Anion Gap 6 MMOL/L (8-16) L 06/03/18 07:35 BUN 21 mg/dl (7-18) H 06/03/18 07:35 Creatinine 0.9 mg/dl (0.6-1.3) 06/03/18 07:35 Creat Clearance w eGFR > 60 (>60) 06/03/18 07:35 POC Glucometer 141 UNITS (80-120) 06/04/18 06:43 Random Glucose 181 mg/dl (74-106) H 06/03/18 07:35 Calcium 8.6 mg/dl (8.4-10.2) 06/03/18 07:35 Magnesium 1.7 mg/dL (1.8-2.4) L 06/03/18 07:35 Total Bilirubin 0.7 mg/dl (0.2-1.0) 06/03/18 07:35 AST 17 U/L (10-42) 06/03/18 07:35 ALT 11 U/L (10-40) 06/03/18 07:35 Alkaline Phosphatase 64 U/L (32-92) D 06/03/18 07:35 Total Protein 5.4 g/dl (6.4-8.3) L 06/03/18 07:35 Albumin 3.1 g/dl (3.5-5.0) L 06/03/18 07:35 HOSPITAL COURSE: Date of Admission:06/02/18 Date of Discharge: 06/04/18 Date of Discharge: 06/04/18 The patient was admitted to the Med-Surg Unit after an elective repair of their right knee DJD. Now, s/p right total knee replacement. Went from PACU to the floors for continued observation and daily care. Intra-op xray was obtained after the case and confirmed hardware placement, no fracturesPOD #1 the patient ambulated the hallways with assistance. Narcotic and non-narcotic pain management control was achieved with an oral and IV approach. POD #2 hemovac removed fully intact and without incident. Rosmery- operative IV ABX were administered. DVT prophylaxis was achieved with SCDs and early ambulation. The patient ambulated with Physical Therapy. Patient will receive in-home PT ( set-up already). Narcotic scripts were checked with [facility] prior to escribe. The discharge instructions and an oral pain management plan were reviewed with the patient. All questions answered. Above plan discussed with Dr. Landry Fishman and agreed. Minutes to complete discharge: 36 Visit type - Case Type Case Type: Scheduled
[2018-06-04] MEDS ORDERED: PT OWN MED DRAWER 7, Y5N ONE (12:10)
--- NOTE | 2018-06-10 14:59 | PATH ---
Surgical Pathology Report Patient Name: CARLA MCCLELLAND Med. Rec. #: [id number] /Age/Gender: 1955 (Age: 63) / F Account: [id number] Location: [facility] MED-SURG Taken: 06/02/2018 Received: 06/02/2018 Reported: 06/10/2018 Physicians: Donald Fishman M.D. Specimen(s) Received RIGHT KNEE BONE Clinical History Right knee osteoarthritis Final Diagnosis BONE, RIGHT KNEE, TOTAL KNEE REPLACEMENT: DEGENERATIVE JOINT DISEASE. Electronically Signed Lili He M.D. Gross Description Received in formalin labeled "right knee bone," is an 11.5 x 10.0 x 1.8 cm aggregate of multiple portions of bone and soft tissue, consistent with knee bones. The articular surfaces show focal areas of granularity. No areas of eburnation are identified. The underlying trabecular bone is yellow and hard. Finance Lead sections are submitted in one cassette, following decalcification. 06/04/2018 [facility]06/04/2018
== END 2018-06-04 13:15 | disposition home health service (06) | DRG 302 ==
LOC: FM/S 11:36
PROVIDERS: ADMIT Orthopaedic Surgery Orthopaedic Surgery of the Spine; ATTEND Orthopaedic Surgery Orthopaedic Surgery of the Spine
PROC: 0J9P0ZZ Drainage of Left Lower Leg Subcutaneous Tissue and Fascia, Open Approach (ICD-10-PCS; 2018-06-02)
PROC: 0SRC0JA Replacement of Right Knee Joint with Synthetic Substitute, Uncemented, Open Approach (ICD-10-PCS; 2018-06-02)
PROC: 0JBP0ZZ Excision of Left Lower Leg Subcutaneous Tissue and Fascia, Open Approach (ICD-10-PCS; principal; 2018-06-02 14:29)
DX: T84.54XA Infection and inflammatory reaction due to internal left knee prosthesis, initial encounter (principal); M17.11 Unilateral primary osteoarthritis, right knee; Y83.9 Surgical procedure, unspecified as the cause of abnormal reaction of the patient, or of later complication, without mention of misadventure at the time of the procedure; I10 Essential (primary) hypertension; E11.9 Type 2 diabetes mellitus without complications; E78.5 Hyperlipidemia, unspecified; E03.9 Hypothyroidism, unspecified; I95.81 Postprocedural hypotension; M24.462 Recurrent dislocation, left knee
CPT/HCPCS: 36415; 73560-TC-RT-FY; 80048; 80053; 82962; 83735; 85025; 85027; 85610; 85730; 86850; 86900; 86901; 88304-TC; 88311-TC; 94760; 97116-GP; 97161-GP; J7030

== ENCOUNTER → 2018-08-24 | Day surgery (SDC) | payer OTHER ==
--- NOTE | 2018-08-25 13:24 | PATH ---
Cytology Non-Gynecological Report Patient Name: CARLA MCCLELLADN [facility]. Rec. #: [id number] /Age/Gender: 1955 (Age: 63) / F Account: [id number] Location: RADIOLOGY INTER Taken: 08/24/2018 Received: 08/24/2018 Reported: 08/25/2018 Physicians: Isaac Rushing M.D. Specimen(s) Received RIGHT THYROID FNA Clinical History Right thyroid nodule, 3.52 x 1.38 x 2.11 cm Final Diagnosis THYROID, RIGHT, FINE NEEDLE ASPIRATION: SATISFACTORY FOR EVALUATION. BETHESDA CLASS II: BENIGN. CYTOLOGIC FINDINGS ARE CONSISTENT WITH A BENIGN FOLLICULAR NODULE. SMALL FOLLICULAR CELLS AND ABUNDANT COLLOID PRESENT. Electronically Signed Gin Vicente M.D. Gross Description Received are eight direct smears, four of which are air-dried and Diff-Quik stained, and four of which are alcohol fixed and Pap stained. Also received is 20 ml of bloody formalin from which one cellblock is prepared.
== END | disposition home or self-care (01) ==
LOC: JRADIR 08:56
PROVIDERS: ATTEND Internal Medicine Endocrinology, Diabetes & Metabolism
PROC: 0G9H3ZX Drainage of Right Thyroid Gland Lobe, Percutaneous Approach, Diagnostic (ICD-10-PCS; principal; 2018-08-24)
DX: E04.1 Nontoxic single thyroid nodule (principal)
CPT/HCPCS: 76942; 88173; 88305-TC

== ENCOUNTER 2020-12-18 04:17 | Inpatient (IN) | payer OTHER, BC ==
[2020-12-18] MEDS ORDERED: THROMBIN (BOVINE) 5,000 UNIT VIAL TP ONE ×2 (09:03→13:46)
[2020-12-18] MEDS ORDERED: BUPIVACAINE LIPOSOME/PF (EXPAREL) 266 MG/20 ML VIAL ONE (09:04)
[2020-12-18] MEDS ORDERED: BUPIVACAINE HCL/PF 0.25% (2.5MG/ML) 10 ML VIAL ONE (09:04)
[2020-12-18] MEDS ORDERED: BENZOIN/ALOE VERA/STORAX/TOLU 58 ML BOTTLE ONE ×2 (09:05→15:27)
[2020-12-18] MEDS ORDERED: DEXAMETHASONE SOD PHOSPHATE 4 MG/1 ML VIAL ONE (09:06)
[2020-12-18] MEDS ORDERED: LIDOCAINE HCL/PF 2% SDV 5ML VIAL ONE (09:06)
[2020-12-18] MEDS ORDERED: ONDANSETRON 4 MG/2 ML VIAL ONE (09:06)
[2020-12-18] MEDS ORDERED: PROPOFOL 20 ML ONE (09:06)
[2020-12-18] MEDS ORDERED: MIDAZOLAM HCL 2 MG/2 ML SINGLE DOSE VIAL ONE ×2 (09:07)
[2020-12-18] MEDS ORDERED: ROCURONIUM BROMIDE 50 MG/5 ML SYRINGE ONE ×2 (09:07→13:40)
[2020-12-18] MEDS ORDERED: ACETAMINOPHEN INJECTION 100 ML IVPB ONE ×2 (12:00→19:25)
[2020-12-18] MEDS ORDERED: ONDANSETRON 4 MG/2 ML VIAL IVPUSH PRN ×3 (12:29→18:00)
[2020-12-18] MEDS ORDERED: HYDROmorphone HCl 2 MG/ML VIAL IVPUSH PRN ×2 (12:29)
[2020-12-18] MEDS ORDERED: LACTATED RINGERS SOLUTION 1,000 ML IV SCH (12:30)
[2020-12-18] MEDS ORDERED: GENTAMICIN SO4 80 MG/2 ML VIAL ONE (12:38)
[2020-12-18] MEDS ORDERED: VANCOMYCIN 1,000 MG VIAL (RESTRICTED TO ID ONLY) IVPB ONE (13:00)
[2020-12-18] MEDS ORDERED: ceFAZolin SODIUM 1 GM VIAL IVPB ONE ×3 (13:00→16:40)
[2020-12-18] MEDS ORDERED: VANCOMYCIN 1,000 MG VIAL (RESTRICTED TO ID ONLY) ONE (13:08)
[2020-12-18] MEDS ORDERED: BUPIVACAINE HCL/PF 0.5% (5MG/ML) 10 ML VIAL IJ ONE (13:48)
[2020-12-18] MEDS ORDERED: BUPIVACAINE LIPOSOME/PF (EXPAREL) 266 MG/20 ML VIAL NR ONE (13:48)
[2020-12-18] MEDS ORDERED: HYDROmorphone HCl 2 MG/ML VIAL ONE ×2 (15:29→17:07)
[2020-12-18] MEDS ORDERED: NEOSTIGMINE METHYLSULFATE 0.5 MG/1 ML - 10 ML MDV ONE (16:41)
[2020-12-18] MEDS ORDERED: oxyCODONE HCL 5 MG TABLET PO PRN (17:56)
[2020-12-18] MEDS ORDERED: PROMETHAZINE HCL 25 MG/1 ML VIAL IVPUSH PRN (18:00)
[2020-12-18] MEDS ORDERED: HYDROmorphone *PCA* 10MG/50ML DISP.SYRIN PCA SCH (18:15)
[2020-12-18] MEDS ORDERED: diazePAM CARPU-JECT 10 MG/2 ML DISP.SYRIN ONE (19:20)
[2020-12-18] MEDS: diazePAM CARPU-JECT 10 MG/2 ML DISP.SYRIN IVPUSH PRN (19:23)
[2020-12-18] MEDS: ACETAMINOPHEN 1000 MG/100 ML VIAL (NON FORMULARY) IVPB PRN (19:30)
[2020-12-18] MEDS: LACTATED RINGERS SOLUTION 1,000 ML IV SCH (20:50)
[2020-12-18] MEDS: CEFAZOLIN 2 GM/D5W 2 GM/50 ML ML IVPB SCH (21:34)
[2020-12-18] MEDS: ATORVASTATIN CA 10 MG TABLET (FP) PO SCH (21:39)
[2020-12-18 21:59] VITALS: BMI 26.1
[2020-12-18] MEDS ORDERED: INSULIN (LEVEMIR) 100 UNITS/ML UNITS SQ SCH (22:00)
[2020-12-18] MEDS: HYDROmorphone HCl 2 MG/ML VIAL SQ PRN (22:47)
[2020-12-19] MEDS: CEFAZOLIN 2 GM/D5W 2 GM/50 ML ML IVPB SCH ×2 (03:18→08:59)
[2020-12-19] MEDS: ACETAMINOPHEN 1000 MG/100 ML VIAL (NON FORMULARY) IVPB PRN ×2 (03:26→16:47)
[2020-12-19] MEDS: HYDROmorphone HCl 2 MG/ML VIAL SQ PRN ×2 (04:50→11:24)
[2020-12-19] MEDS: LACTATED RINGERS SOLUTION 1,000 ML IV SCH ×3 (05:08→18:35)
[2020-12-19] MEDS ORDERED: glipiZIDE-XL 2.5 MG TAB.ER.24 PO SCH (07:00)
[2020-12-19 09:26] LABS: HEMATOCRIT 24.4 % (32.4-45.2); HEMOGLOBIN 8.1 GM/dL (10.7-15.3); MCH 27.6 pg (25.7-33.7); MCHC 33.1 g/dl (32.0-36.0); MEAN CELL VOLUME 83.3 fl (80-96); MEAN PLT VOLUME 8.3 fl (7.5-11.1); PLATELET COUNT 270 10^3/uL (134-434); RBC 2.93 M/mm3 (3.60-5.2); RDW 15.8 % (11.6-15.6); WHITE BLOOD COUNT 11.1 K/mm3 (4.0-10.0)
[2020-12-19] MEDS ORDERED: PATIENT'S OWN MEDICATION (NON-FORMULARY) (Lisinopril/Hydrochlorothiazide [Lisinopril-Hctz PO SCH (10:00)
[2020-12-19 10:10] LABS: BLOOD UREA NITROGEN 16.9 mg/dL (7-18); CALCIUM 8.2 mg/dL (8.5-10.1)
[2020-12-19] MEDS ORDERED: PT OWN MED DRAWER 7, Y5N ONE ×3 (10:12→11:19)
[2020-12-19 10:13] LABS: CREATININE 0.9 mg/dL (0.55-1.3)
[2020-12-19] MEDS: HYDROCHLOROTHIAZIDE 25 MG TABLET (FP) PO SCH (10:21)
[2020-12-19] MEDS: LISINOPRIL 20 MG TABLET PO SCH (10:22)
[2020-12-19] MEDS: DULoxetine HCL 20 MG CAPSULE.DR PO SCH (10:22)
[2020-12-19] MEDS: FENOFIBRIC ACID 45 MG CAP PO SCH (10:27)
[2020-12-19] MEDS: diazePAM CARPU-JECT 10 MG/2 ML DISP.SYRIN IVPUSH PRN (14:30)
[2020-12-19] MEDS ORDERED: PCA PUMP NR ONE (17:13)
[2020-12-19] MEDS: HYDROmorphone *PCA* 10MG/50ML DISP.SYRIN PCA SCH (17:15)
[2020-12-19] MEDS: ATORVASTATIN CA 10 MG TABLET (FP) PO SCH (21:05)
[2020-12-19] MEDS: oxyCODONE HCL 5 MG TABLET PO PRN (23:29)
[2020-12-20] MEDS: LACTATED RINGERS SOLUTION 1,000 ML IV SCH (00:29)
[2020-12-20] MEDS ORDERED: PCA PUMP NR ONE ×3 (00:49→18:03)
[2020-12-20] MEDS: oxyCODONE HCL 5 MG TABLET PO PRN (03:42)
[2020-12-20] MEDS: HYDROmorphone HCl 2 MG/ML VIAL SQ PRN (07:56)
[2020-12-20] MEDS: SODIUM CHLORIDE 1,000 ML IV SCH ×2 (08:00→16:58)
[2020-12-20 08:05] LABS: BASO % 0.6 % (0-2.0); EOS % 0.7 % (0-4.5); HEMATOCRIT 23.8 % (32.4-45.2); HEMOGLOBIN 7.9 GM/dL (10.7-15.3); LYMPH % 23.6 % (8-40); MCH 27.8 pg (25.7-33.7); MCHC 33.4 g/dl (32.0-36.0); MEAN CELL VOLUME 83.4 fl (80-96); MONO % 7.1 % (3.8-10.2); PLATELET COUNT 222 10^3/uL (134-434); RBC 2.85 M/mm3 (3.60-5.2); RDW 15.9 % (11.6-15.6); WHITE BLOOD COUNT 8.6 K/mm3 (4.0-10.0)
[2020-12-20 08:27] LABS: ALBUMIN 2.5 g/dl (3.4-5.0); CALCIUM 7.9 mg/dL (8.5-10.1)
[2020-12-20 08:28] LABS: BLOOD UREA NITROGEN 11.2 mg/dL (7-18); MAGNESIUM 1.7 mg/dL (1.8-2.4)
[2020-12-20 08:30] LABS: CREATININE 0.8 mg/dL (0.55-1.3); PHOSPHOROUS 1.8 mg/dL (2.5-4.9)
[2020-12-20 08:31] LABS: BILIRUBIN,TOTAL 0.5 mg/dL (0.2-1); TOT PROT 4.7 g/dl (6.4-8.2)
[2020-12-20] MEDS ORDERED: MAGNESIUM OXIDE 400 MG TABLET (FP) PO ONE (08:56)
[2020-12-20] MEDS ORDERED: POTASSIUM PHOSPHATE 15 MM in SODIUM CHLORIDE 250 ML IVPB ONE (09:00)
[2020-12-20] MEDS ORDERED: NAPH,MB-DB/K PH,MBDB POWDER PACKET PO ONE (09:47)
[2020-12-20] MEDS ORDERED: CEFTRIAXONE 1 GM in DEXTROSE 5%-WATER - 50 ML IVPB SCH (10:00)
[2020-12-20] MEDS ORDERED: cefTRIAXone SODIUM 1 GM VIAL ONE (10:17)
[2020-12-20] MEDS ORDERED: DEXTROSE 5%-WATER - 50 ML IVPB ONE (10:18)
[2020-12-20] MEDS: HYDROCHLOROTHIAZIDE 25 MG TABLET (FP) PO SCH (10:22)
[2020-12-20] MEDS: DULoxetine HCL 20 MG CAPSULE.DR PO SCH (10:22)
[2020-12-20] MEDS: LISINOPRIL 20 MG TABLET PO SCH (10:22)
[2020-12-20] MEDS ORDERED: PT OWN MED DRAWER 7, Y5N ONE (10:24)
[2020-12-20] MEDS: FENOFIBRIC ACID 45 MG CAP PO SCH (10:26)
[2020-12-20 12:43] LABS: URINE APPEARANCE Clear; URINE BILIRUBIN Negative (NEGATIVE); URINE COLOR Yellow; URINE GLUCOSE (UA) Negative (NEGATIVE); URINE KETONE 1+ (NEGATIVE); URINE LEUK ESTERASE Trace (NEGATIVE); URINE NITRITE Negative (NEGATIVE); URINE PROTEIN Negative (NEGATIVE); URINE UROBILINOGEN 0.2 mg/dL (0.2-1.0)
[2020-12-20] MEDS: HYDROmorphone *PCA* 10MG/50ML DISP.SYRIN PCA SCH (18:04)
[2020-12-20] MEDS: ATORVASTATIN CA 10 MG TABLET (FP) PO SCH (21:07)
[2020-12-21] MEDS: SODIUM CHLORIDE 1,000 ML IV SCH ×2 (01:30→09:51)
[2020-12-21 08:45] LABS: BASO % 0.7 % (0-2.0); EOS % 2.6 % (0-4.5); HEMATOCRIT 23.3 % (32.4-45.2); HEMOGLOBIN 7.7 GM/dL (10.7-15.3); LYMPH % 25.6 % (8-40); MCH 27.8 pg (25.7-33.7); MCHC 33.1 g/dl (32.0-36.0); MONO % 6.5 % (3.8-10.2); NEUT % 64.6 % (42.8-82.8); PLATELET COUNT 224 10^3/uL (134-434); RBC 2.77 M/mm3 (3.60-5.2); RDW 15.9 % (11.6-15.6); WHITE BLOOD COUNT 6.9 K/mm3 (4.0-10.0)
[2020-12-21 09:03] LABS: CALCIUM 7.6 mg/dL (8.5-10.1)
[2020-12-21 09:04] LABS: ALBUMIN 2.4 g/dl (3.4-5.0); BLOOD UREA NITROGEN 7.8 mg/dL (7-18)
[2020-12-21 09:07] LABS: CREATININE 0.6 mg/dL (0.55-1.3); PHOSPHOROUS 1.9 mg/dL (2.5-4.9)
[2020-12-21 09:08] LABS: BILIRUBIN,TOTAL 0.9 mg/dL (0.2-1)
[2020-12-21 09:09] LABS: TOT PROT 4.9 g/dl (6.4-8.2)
[2020-12-21] MEDS: HYDROCHLOROTHIAZIDE 25 MG TABLET (FP) PO SCH (09:52)
[2020-12-21] MEDS: oxyCODONE HCL 5 MG TABLET PO PRN ×2 (09:52→16:36)
[2020-12-21] MEDS: DULoxetine HCL 20 MG CAPSULE.DR PO SCH (09:52)
[2020-12-21] MEDS: LISINOPRIL 20 MG TABLET PO SCH (09:52)
[2020-12-21] MEDS: FENOFIBRIC ACID 45 MG CAP PO SCH (11:36)
[2020-12-21] MEDS: HYDROmorphone HCl 2 MG/ML VIAL SQ PRN (11:50)
[2020-12-21] MEDS ORDERED: PCA PUMP NR ONE (15:58)
[2020-12-21] MEDS: INSULIN SLIDING SCALE (NOVOLOG) 1 VIAL SQ SCH ×2 (16:41→21:16)
[2020-12-21] MEDS: ATORVASTATIN CA 10 MG TABLET (FP) PO SCH (21:11)
[2020-12-21] MEDS: INSULIN (LEVEMIR) 100 UNITS/ML UNITS SQ SCH (21:15)
[2020-12-22] MEDS: oxyCODONE HCL 5 MG TABLET PO PRN ×2 (01:33→08:07)
[2020-12-22] MEDS: INSULIN SLIDING SCALE (NOVOLOG) 1 VIAL SQ SCH ×4 (08:02→22:08)
[2020-12-22] MEDS ORDERED: HYDROmorphone HCL CARPU-JECT 2 MG/1 ML DISP.SYRIN IM ONE (08:34)
[2020-12-22] MEDS ORDERED: HYDROmorphone HCl 2 MG/ML VIAL SQ ONE (08:34)
[2020-12-22 09:14] LABS: HEMATOCRIT 25.9 % (32.4-45.2); HEMOGLOBIN 8.4 GM/dL (10.7-15.3); MCH 27.3 pg (25.7-33.7); MCHC 32.2 g/dl (32.0-36.0); MEAN CELL VOLUME 84.8 fl (80-96); PLATELET COUNT 273 10^3/uL (134-434); RBC 3.06 M/mm3 (3.60-5.2); RDW 15.9 % (11.6-15.6); WHITE BLOOD COUNT 7.6 K/mm3 (4.0-10.0)
[2020-12-22 09:15] LABS: BASO % 0.6 % (0-2.0); EOS % 4.2 % (0-4.5); LYMPH % 23.4 % (8-40); MEAN PLT VOLUME 8.8 fl (7.5-11.1); MONO % 6.5 % (3.8-10.2); NEUT % 65.3 % (42.8-82.8)
[2020-12-22] MEDS ORDERED: PT OWN MED DRAWER 7, Y5N ONE ×2 (09:18→10:20)
[2020-12-22] MEDS: HYDROCHLOROTHIAZIDE 25 MG TABLET (FP) PO SCH (09:26)
[2020-12-22] MEDS: DULoxetine HCL 20 MG CAPSULE.DR PO SCH (09:26)
[2020-12-22] MEDS: FENOFIBRIC ACID 45 MG CAP PO SCH (09:27)
[2020-12-22] MEDS: LISINOPRIL 20 MG TABLET PO SCH (09:28)
[2020-12-22 09:34] LABS: ALBUMIN 2.7 g/dl (3.4-5.0)
[2020-12-22 09:35] LABS: BLOOD UREA NITROGEN 7.7 mg/dL (7-18); CALCIUM 8.5 mg/dL (8.5-10.1)
[2020-12-22 09:36] LABS: MAGNESIUM 2.1 mg/dL (1.8-2.4)
[2020-12-22 09:39] LABS: CREATININE 0.7 mg/dL (0.55-1.3); PHOSPHOROUS 2.3 mg/dL (2.5-4.9)
[2020-12-22 09:40] LABS: BILIRUBIN,TOTAL 0.6 mg/dL (0.2-1); TOT PROT 5.8 g/dl (6.4-8.2)
[2020-12-22] MEDS ORDERED: NAPH,MB-DB/K PH,MBDB POWDER PACKET PO ONE (10:05)
[2020-12-22] MEDS ORDERED: POLYETHYLENE GLYCOL (HEALTHYLAX) 3350 17 GM PACKET PO SCH (12:45)
[2020-12-22] MEDS: diazePAM 5 MG TABLET PO PRN (13:06)
[2020-12-22] MEDS ORDERED: ACETAMINOPHEN 1000 MG/100 ML VIAL (NON FORMULARY) IVPB PRN (13:10)
[2020-12-22] MEDS: LACTULOSE 20 GM/30 ML UDC (FOR ORAL USE ONLY) PO PRN (13:40)
[2020-12-22] MEDS: SIMETHICONE 80 MG TAB.CHEW (FP) PO PRN (16:50)
[2020-12-22] MEDS: HYDROmorphone HCl 2 MG/ML VIAL SQ PRN (20:28)
[2020-12-22] MEDS: POLYETHYLENE GLYCOL (HEALTHYLAX) 3350 17 GM PACKET PO SCH (21:46)
[2020-12-22] MEDS: ATORVASTATIN CA 10 MG TABLET (FP) PO SCH (21:46)
[2020-12-22] MEDS: INSULIN (LEVEMIR) 100 UNITS/ML UNITS SQ SCH (22:08)
[2020-12-23] MEDS: diazePAM 5 MG TABLET PO PRN ×2 (01:31→10:08)
[2020-12-23] MEDS: oxyCODONE HCL 5 MG TABLET PO PRN (03:43)
[2020-12-23] MEDS: POLYETHYLENE GLYCOL (HEALTHYLAX) 3350 17 GM PACKET PO SCH ×3 (05:51→23:01)
[2020-12-23] MEDS: INSULIN SLIDING SCALE (NOVOLOG) 1 VIAL SQ SCH ×4 (06:01→23:01)
[2020-12-23 08:02] LABS: HEMATOCRIT 22.3 % (32.4-45.2); HEMOGLOBIN 7.3 GM/dL (10.7-15.3); MCH 27.8 pg (25.7-33.7); MCHC 32.7 g/dl (32.0-36.0); MEAN PLT VOLUME 8.9 fl (7.5-11.1); PLATELET COUNT 270 10^3/uL (134-434); RBC 2.62 M/mm3 (3.60-5.2); RDW 16.2 % (11.6-15.6)
[2020-12-23 08:31] LABS: BLOOD UREA NITROGEN 8.4 mg/dL (7-18); CALCIUM 8.1 mg/dL (8.5-10.1)
[2020-12-23 08:34] LABS: CREATININE 0.7 mg/dL (0.55-1.3); PHOSPHOROUS 3.1 mg/dL (2.5-4.9)
[2020-12-23] MEDS: LISINOPRIL 20 MG TABLET PO SCH (10:08)
[2020-12-23] MEDS: HYDROCHLOROTHIAZIDE 25 MG TABLET (FP) PO SCH (10:08)
[2020-12-23] MEDS: SIMETHICONE 80 MG TAB.CHEW (FP) PO PRN (10:08)
[2020-12-23] MEDS: DULoxetine HCL 20 MG CAPSULE.DR PO SCH (10:08)
[2020-12-23] MEDS: LACTULOSE 20 GM/30 ML UDC (FOR ORAL USE ONLY) PO PRN (10:09)
[2020-12-23] MEDS: FENOFIBRIC ACID 45 MG CAP PO SCH (10:10)
[2020-12-23] MEDS ORDERED: PT OWN MED DRAWER 7, Y5N ONE (10:10)
[2020-12-23] MEDS: HYDROmorphone HCl 2 MG/ML VIAL SQ PRN ×2 (12:06→21:31)
[2020-12-23] MEDS: ATORVASTATIN CA 10 MG TABLET (FP) PO SCH (21:44)
[2020-12-23] MEDS: INSULIN (LEVEMIR) 100 UNITS/ML UNITS SQ SCH (21:44)
[2020-12-24] MEDS: diazePAM 5 MG TABLET PO PRN (02:07)
[2020-12-24] MEDS: POLYETHYLENE GLYCOL (HEALTHYLAX) 3350 17 GM PACKET PO SCH ×2 (05:04→14:27)
[2020-12-24] MEDS: oxyCODONE HCL 5 MG TABLET PO PRN ×2 (05:05→11:31)
[2020-12-24] MEDS: INSULIN SLIDING SCALE (NOVOLOG) 1 VIAL SQ SCH ×2 (06:17→11:56)
[2020-12-24 08:15] LABS: BASO % 0.7 % (0-2.0); HEMATOCRIT 23.5 % (32.4-45.2); HEMOGLOBIN 7.7 GM/dL (10.7-15.3); LYMPH % 26.9 % (8-40); MCH 27.6 pg (25.7-33.7); MCHC 32.7 g/dl (32.0-36.0); MEAN CELL VOLUME 84.4 fl (80-96); MEAN PLT VOLUME 8.3 fl (7.5-11.1); MONO % 9.6 % (3.8-10.2); NEUT % 58.8 % (42.8-82.8); PLATELET COUNT 319 10^3/uL (134-434); RBC 2.79 M/mm3 (3.60-5.2); RDW 15.8 % (11.6-15.6); WHITE BLOOD COUNT 6.2 K/mm3 (4.0-10.0)
[2020-12-24] MEDS ORDERED: PT OWN MED DRAWER 7, Y5N ONE (09:28)
[2020-12-24] MEDS: HYDROCHLOROTHIAZIDE 25 MG TABLET (FP) PO SCH (09:39)
[2020-12-24] MEDS: LISINOPRIL 20 MG TABLET PO SCH (09:39)
[2020-12-24] MEDS: DULoxetine HCL 20 MG CAPSULE.DR PO SCH (09:39)
[2020-12-24] MEDS: FENOFIBRIC ACID 45 MG CAP PO SCH (09:40)
[2020-12-24 15:13] VITALS: BP 101/60; PULSE 65; TEMP 98.6
== END 2020-12-24 16:59 | disposition home or self-care (01) | DRG 455 ==
LOC: J2C 04:17 → J8W 20:48
PROVIDERS: ADMIT Orthopaedic Surgery Orthopaedic Surgery of the Spine; ATTEND Internal Medicine
PROC: 0SG1071 Fusion of 2 or more Lumbar Vertebral Joints with Autologous Tissue Substitute, Posterior Approach, Posterior Column, Open Approach (ICD-10-PCS; 2020-12-18)
PROC: 01NB0ZZ Release Lumbar Nerve, Open Approach (ICD-10-PCS; 2020-12-18)
PROC: 0SG10AJ Fusion of 2 or more Lumbar Vertebral Joints with Interbody Fusion Device, Posterior Approach, Anterior Column, Open Approach (ICD-10-PCS; 2020-12-18)
PROC: 0JX70ZB Transfer Back Subcutaneous Tissue and Fascia with Skin and Subcutaneous Tissue, Open Approach (ICD-10-PCS; 2020-12-18)
PROC: B01BZZZ Fluoroscopy of Spinal Cord (ICD-10-PCS; 2020-12-18)
PROC: 4A1004G Monitoring of Central Nervous Electrical Activity, Intraoperative, Open Approach (ICD-10-PCS; 2020-12-18)
PROC: 07DR0ZZ Extraction of Iliac Bone Marrow, Open Approach (ICD-10-PCS; 2020-12-18)
PROC: 0SG30AJ Fusion of Lumbosacral Joint with Interbody Fusion Device, Posterior Approach, Anterior Column, Open Approach (ICD-10-PCS; principal; 2020-12-18 12:00)
DX: M48.07 Spinal stenosis, lumbosacral region (principal); M47.27 Other spondylosis with radiculopathy, lumbosacral region; E11.9 Type 2 diabetes mellitus without complications; I10 Essential (primary) hypertension; E78.5 Hyperlipidemia, unspecified
CPT/HCPCS: 36415; 71045-TC-FY; 72131-TC; 76000-TC-FY; 80048; 80053; 81003; 82962; 83735; 84100; 85025; 85027; 86850; 86900; 86901; 87040; 87086; 94760; 97116-GP; 97161-GP; C9803; J0131; U0003; U0005

== ENCOUNTER 2020-12-30 17:38 | Emergency (ER) | payer OTHER, BC ==
[2020-12-30 18:18] VITALS: TEMP 98.5; BMI 28.2
[2020-12-30] MEDS ORDERED: LIDOCAINE 5% TOPICAL PATCH TP ONE (18:41)
[2020-12-30] MEDS ORDERED: LIDOCAINE 5% TOPICAL PATCH ONE (18:54)
[2020-12-30 20:36] VITALS: BP 134/70; PULSE 72
[2020-12-30] MEDS ORDERED: LIDOCAINE PATCH REMOVAL MC SCH (22:00)
== END 2020-12-31 00:02 | disposition home or self-care (01) ==
LOC: JER 17:38
DX: M54.5 Low back pain (principal)
CPT/HCPCS: 99283-25

== ENCOUNTER 2021-01-29 22:43 | Inpatient (IN) | payer OTHER, BC ==
[2021-01-30] MEDS ORDERED: morphine CARPU-JECT 4 MG/1 ML DISP.SYRIN IVPUSH ONE (01:19)
[2021-01-30] MEDS ORDERED: ACETAMINOPHEN 1000 MG/100 ML VIAL (NON FORMULARY) IVPB ONE (01:19)
[2021-01-30] MEDS ORDERED: morphine SULFATE 4 MG/ML VIAL ONE (02:16)
[2021-01-30] MEDS ORDERED: ACETAMINOPHEN INJECTION 100 ML IVPB ONE (02:16)
[2021-01-30 02:17] LABS: BASO % 0.9 % (0-2.0); EOS % 3.4 % (0-4.5); HEMATOCRIT 24.8 % (32.4-45.2); HEMOGLOBIN 8.1 GM/dL (10.7-15.3); MCH 24.8 pg (25.7-33.7); MCHC 32.6 g/dl (32.0-36.0); MEAN CELL VOLUME 76.3 fl (80-96); MEAN PLT VOLUME 7.5 fl (7.5-11.1); MONO % 10.5 % (3.8-10.2); NEUT % 58.2 % (42.8-82.8); PLATELET COUNT 340 10^3/uL (134-434); RBC 3.25 M/mm3 (3.60-5.2); RDW 17.7 % (11.6-15.6); WHITE BLOOD COUNT 5.5 K/mm3 (4.0-10.0)
[2021-01-30 02:45] LABS: CALCIUM 8.9 mg/dL (8.5-10.1)
[2021-01-30 02:46] LABS: ALBUMIN 3.3 g/dl (3.4-5.0); BLOOD UREA NITROGEN 13.9 mg/dL (7-18)
[2021-01-30 02:49] LABS: CREATININE 1.3 mg/dL (0.55-1.3)
[2021-01-30 02:50] LABS: BILIRUBIN,TOTAL 0.3 mg/dL (0.2-1)
[2021-01-30 02:51] LABS: TOT PROT 6.5 g/dl (6.4-8.2)
[2021-01-30] MEDS ORDERED: ACETAMINOPHEN 325 MG TABLET (FP) PO PRN ×2 (09:48→20:20)
[2021-01-30] MEDS ORDERED: morphine SULFATE 4 MG/ML VIAL IVPUSH PRN (09:49)
[2021-01-30] MEDS ORDERED: oxyCODONE HCL 5 MG TABLET PO PRN ×2 (09:56→20:20)
[2021-01-30] MEDS ORDERED: DOCUSATE SODIUM 100 MG CAPSULE (FP) PO SCH (10:00)
[2021-01-30] MEDS ORDERED: LACTATED RINGERS SOLUTION 1,000 ML/1,000 ML INFUS.BAG IV SCH ×2 (10:15→20:20)
[2021-01-30] MEDS ORDERED: DOCUSATE SODIUM 100 MG CAPSULE (FP) PO ONE (10:42)
[2021-01-30] MEDS ORDERED: LACTATED RINGERS SOLUTION 1000 ML INFUS.BAG IV ONE (10:45)
[2021-01-30] MEDS: INSULIN SLIDING SCALE (NOVOLOG) 1 VIAL SQ SCH ×3 (10:54→22:55)
[2021-01-30] MEDS ORDERED: oxyCODONE HCL 5 MG TABLET ONE (10:56)
[2021-01-30] MEDS ORDERED: LACTATED RINGERS SOLUTION 500 ML IV SCH (11:00)
[2021-01-30 11:48] LABS: INR 0.99 (0.83-1.09); PROTHROMBIN TIME (PATIENT) 12.2 SEC (9.7-13.0)
[2021-01-30 11:50] LABS: ACTIVATED PTT 26.2 SECONDS (25.2-36.5)
[2021-01-30] MEDS ORDERED: PROPOFOL 20 ML ONE (18:35)
[2021-01-30] MEDS ORDERED: MIDAZOLAM HCL 2 MG/2 ML SINGLE DOSE VIAL ONE (18:35)
[2021-01-30] MEDS ORDERED: ROCURONIUM BROMIDE 50 MG/5 ML SYRINGE ONE (18:35)
[2021-01-30] MEDS ORDERED: LIDOCAINE HCL/PF 2% SDV 5ML VIAL ONE (18:35)
[2021-01-30] MEDS ORDERED: ceFAZolin SODIUM 1 GM VIAL ONE (18:37)
[2021-01-30] MEDS ORDERED: VANCOMYCIN 1,000 MG VIAL (RESTRICTED TO ID ONLY) ONE (18:37)
[2021-01-30] MEDS ORDERED: ONDANSETRON 4 MG/2 ML VIAL ONE (18:51)
[2021-01-30] MEDS ORDERED: DEXAMETHASONE SOD PHOSPHATE 4 MG/1 ML VIAL ONE (18:51)
[2021-01-30] MEDS ORDERED: VANCOMYCIN 1,000 MG VIAL (RESTRICTED TO ID ONLY) IVPB ONE (19:27)
[2021-01-30] MEDS ORDERED: ceFAZolin SODIUM 1 GM VIAL IVPB ONE (19:27)
[2021-01-30] MEDS ORDERED: GLYCOPYRROLATE 0.2 MG/1 ML VIAL ONE ×2 (19:38→19:50)
[2021-01-30] MEDS ORDERED: NEOSTIGMINE METHYLSULFATE 0.5 MG/1 ML - 10 ML MDV ONE (19:38)
[2021-01-30] MEDS ORDERED: HYDROmorphone HCL CARPU-JECT 2 MG/1 ML DISP.SYRIN IVPUSH ONE ×3 (20:10→20:20)
[2021-01-30] MEDS ORDERED: HYDROmorphone HCl 2 MG/ML VIAL ONE (20:11)
[2021-01-30] MEDS ORDERED: ONDANSETRON 4 MG/2 ML VIAL IVPUSH PRN (20:20)
[2021-01-30] MEDS ORDERED: CYCLOBENZAPRINE HCL 10 MG TABLET (FP) PO PRN (20:20)
[2021-01-30] MEDS ORDERED: HYDROmorphone HCl 2 MG/ML VIAL IVPB ONE (20:23)
[2021-01-30] MEDS ORDERED: LACTATED RINGERS SOLUTION 1,000 ML IV SCH (20:30)
[2021-01-30] MEDS: INSULIN (LEVEMIR) 100 UNITS/ML UNITS SQ SCH (22:54)
[2021-01-31] MEDS: morphine SULFATE 4 MG/ML VIAL IVPUSH PRN ×2 (03:43→20:46)
[2021-01-31] MEDS ORDERED: PT OWN MED DRAWER 7, Y5N ONE ×2 (06:15→09:34)
[2021-01-31] MEDS: INSULIN SLIDING SCALE (NOVOLOG) 1 VIAL SQ SCH ×4 (06:16→21:00)
[2021-01-31] MEDS: glipiZIDE-XL 2.5 MG TAB.ER.24 PO SCH (06:16)
[2021-01-31 08:46] LABS: HEMATOCRIT 22.9 % (32.4-45.2); HEMOGLOBIN 7.5 GM/dL (10.7-15.3); MCH 25.2 pg (25.7-33.7); MCHC 32.7 g/dl (32.0-36.0); MEAN CELL VOLUME 76.8 fl (80-96); MEAN PLT VOLUME 8.1 fl (7.5-11.1); PLATELET COUNT 313 10^3/uL (134-434); RBC 2.98 M/mm3 (3.60-5.2); RDW 17.3 % (11.6-15.6); WHITE BLOOD COUNT 5.7 K/mm3 (4.0-10.0)
[2021-01-31 09:09] LABS: BLOOD UREA NITROGEN 10.4 mg/dL (7-18)
[2021-01-31 09:12] LABS: CALCIUM 8.5 mg/dL (8.5-10.1)
[2021-01-31] MEDS ORDERED: ACETAMINOPHEN 1000 MG/100 ML VIAL (NON FORMULARY) IVPB PRN (09:30)
[2021-01-31] MEDS ORDERED: oxyCODONE HCL 5 MG TABLET PO PRN (09:30)
[2021-01-31] MEDS ORDERED: ONDANSETRON 4 MG/2 ML VIAL IVPUSH PRN (09:30)
[2021-01-31] MEDS: DOCUSATE SODIUM 100 MG CAPSULE (FP) PO SCH (09:38)
[2021-01-31] MEDS: DULoxetine HCL 20 MG CAPSULE.DR PO SCH (09:38)
[2021-01-31] MEDS: PANTOPRAZOLE SODIUM 40 MG VIAL IVPUSH SCH (09:38)
[2021-01-31] MEDS: HYDROCHLOROTHIAZIDE 25 MG TABLET (FP) PO SCH (09:39)
[2021-01-31] MEDS: LACTATED RINGERS SOLUTION 1,000 ML IV SCH (09:39)
[2021-01-31] MEDS: LISINOPRIL 20 MG TABLET PO SCH (09:39)
[2021-01-31] MEDS ORDERED: CEFAZOLIN 2 GM in DEXTROSE 5%-WATER - 100 ML IVPB SCH (09:45)
[2021-01-31] MEDS ORDERED: PATIENT'S OWN MEDICATION (NON-FORMULARY) (Lisinopril/Hydrochlorothiazide [Lisinopril-Hctz PO SCH (10:00)
[2021-01-31] MEDS ORDERED: DEXTROSE 5%-WATER - 50 ML IVPB ONE ×2 (11:48→17:39)
[2021-01-31] MEDS ORDERED: ceFAZolin SODIUM 1 GM VIAL ONE ×2 (11:48→17:39)
[2021-01-31] MEDS: CEFAZOLIN 1 GM in DEXTROSE 5%-WATER - 1 GM/50 ML IVPB IVPB SCH ×2 (11:54→17:45)
[2021-01-31] MEDS: oxyCODONE HCL 5 MG TABLET PO PRN (14:31)
[2021-01-31] MEDS ORDERED: CEFAZOLIN 1 GM in DEXTROSE 5%-WATER - 1 GM/50 ML IVPB IVPB SCH (18:00)
[2021-01-31] MEDS: INSULIN (LEVEMIR) 100 UNITS/ML UNITS SQ SCH (21:27)
[2021-02-01] MEDS ORDERED: ceFAZolin SODIUM 1 GM VIAL ONE ×3 (01:01→17:44)
[2021-02-01] MEDS ORDERED: DEXTROSE 5%-WATER - 50 ML IVPB ONE ×3 (01:02→17:44)
[2021-02-01] MEDS: CEFAZOLIN 1 GM in DEXTROSE 5%-WATER - 1 GM/50 ML IVPB IVPB SCH ×3 (01:19→17:50)
[2021-02-01] MEDS ORDERED: PT OWN MED DRAWER 7, Y5N ONE (05:25)
[2021-02-01] MEDS: oxyCODONE HCL 5 MG TABLET PO PRN ×2 (05:39→23:06)
[2021-02-01] MEDS: glipiZIDE-XL 2.5 MG TAB.ER.24 PO SCH (06:14)
[2021-02-01] MEDS: INSULIN SLIDING SCALE (NOVOLOG) 1 VIAL SQ SCH ×4 (06:14→21:34)
[2021-02-01 09:30] LABS: HEMATOCRIT 20.1 % (32.4-45.2); MCH 25.1 pg (25.7-33.7); MCHC 32.9 g/dl (32.0-36.0); MEAN CELL VOLUME 76.5 fl (80-96); MEAN PLT VOLUME 8.4 fl (7.5-11.1); PLATELET COUNT 277 10^3/uL (134-434); RBC 2.63 M/mm3 (3.60-5.2); RDW 17.9 % (11.6-15.6); WHITE BLOOD COUNT 5.7 K/mm3 (4.0-10.0)
[2021-02-01 09:51] LABS: HEMOGLOBIN 6.6 GM/dL (10.7-15.3)
[2021-02-01] MEDS: HYDROCHLOROTHIAZIDE 25 MG TABLET (FP) PO SCH (09:52)
[2021-02-01] MEDS: DULoxetine HCL 20 MG CAPSULE.DR PO SCH (09:52)
[2021-02-01] MEDS: LISINOPRIL 20 MG TABLET PO SCH (09:52)
[2021-02-01] MEDS: DOCUSATE SODIUM 100 MG CAPSULE (FP) PO SCH (09:52)
[2021-02-01] MEDS: PANTOPRAZOLE SODIUM 40 MG VIAL IVPUSH SCH (09:52)
[2021-02-01 10:10] LABS: BLOOD UREA NITROGEN 8.4 mg/dL (7-18)
[2021-02-01 10:12] LABS: CREATININE 0.9 mg/dL (0.55-1.3)
[2021-02-01 21:17] LABS: EOS % 4.3 % (0-4.5); HEMATOCRIT 23.6 % (32.4-45.2); HEMOGLOBIN 7.8 GM/dL (10.7-15.3); LYMPH % 32.1 % (8-40); MCH 25.3 pg (25.7-33.7); MEAN CELL VOLUME 76.7 fl (80-96); MEAN PLT VOLUME 7.8 fl (7.5-11.1); MONO % 11.1 % (3.8-10.2); NEUT % 51.5 % (42.8-82.8); PLATELET COUNT 272 10^3/uL (134-434); RBC 3.07 M/mm3 (3.60-5.2); RDW 17.6 % (11.6-15.6); WHITE BLOOD COUNT 7.9 K/mm3 (4.0-10.0)
[2021-02-01] MEDS: INSULIN (LEVEMIR) 100 UNITS/ML UNITS SQ SCH (21:34)
[2021-02-01] MEDS: ALPRAZolam 0.25 MG TABLET PO PRN (23:06)
[2021-02-02] MEDS ORDERED: DEXTROSE 5%-WATER - 50 ML IVPB ONE ×3 (01:15→17:18)
[2021-02-02] MEDS ORDERED: ceFAZolin SODIUM 1 GM VIAL ONE ×3 (01:15→17:17)
[2021-02-02] MEDS: CEFAZOLIN 1 GM in DEXTROSE 5%-WATER - 1 GM/50 ML IVPB IVPB SCH ×3 (01:52→17:35)
[2021-02-02] MEDS ORDERED: PT OWN MED DRAWER 7, Y5N ONE ×3 (06:12→13:47)
[2021-02-02] MEDS: oxyCODONE HCL 5 MG TABLET PO PRN (06:22)
[2021-02-02] MEDS: glipiZIDE-XL 2.5 MG TAB.ER.24 PO SCH (06:23)
[2021-02-02] MEDS: INSULIN SLIDING SCALE (NOVOLOG) 1 VIAL SQ SCH ×4 (06:23→22:25)
[2021-02-02 09:06] LABS: BASO % 1.3 % (0-2.0); EOS % 4.7 % (0-4.5); HEMATOCRIT 24.6 % (32.4-45.2); HEMOGLOBIN 8.2 GM/dL (10.7-15.3); LYMPH % 33.1 % (8-40); MCH 25.6 pg (25.7-33.7); MCHC 33.2 g/dl (32.0-36.0); MEAN CELL VOLUME 76.9 fl (80-96); MEAN PLT VOLUME 8.3 fl (7.5-11.1); MONO % 11.1 % (3.8-10.2); NEUT % 49.8 % (42.8-82.8); PLATELET COUNT 315 10^3/uL (134-434); RBC 3.19 M/mm3 (3.60-5.2); RDW 17.4 % (11.6-15.6); WHITE BLOOD COUNT 6.6 K/mm3 (4.0-10.0)
[2021-02-02 09:28] LABS: ALBUMIN 2.8 g/dl (3.4-5.0); BLOOD UREA NITROGEN 7.8 mg/dL (7-18); CALCIUM 8.5 mg/dL (8.5-10.1); MAGNESIUM 2.1 mg/dL (1.8-2.4)
[2021-02-02 09:33] LABS: BILIRUBIN,TOTAL 0.4 mg/dL (0.2-1); CREATININE 1.2 mg/dL (0.55-1.3); TOT PROT 6.2 g/dl (6.4-8.2)
[2021-02-02] MEDS: DOCUSATE SODIUM 100 MG CAPSULE (FP) PO SCH (10:03)
[2021-02-02] MEDS: HYDROCHLOROTHIAZIDE 25 MG TABLET (FP) PO SCH (10:03)
[2021-02-02] MEDS: DULoxetine HCL 20 MG CAPSULE.DR PO SCH (10:03)
[2021-02-02] MEDS: LISINOPRIL 20 MG TABLET PO SCH (10:03)
[2021-02-02] MEDS: PANTOPRAZOLE SODIUM 40 MG VIAL IVPUSH SCH (10:05)
[2021-02-02] MEDS: LACTATED RINGERS SOLUTION 1,000 ML IV SCH (17:45)
[2021-02-02] MEDS: morphine SULFATE 4 MG/ML VIAL IVPUSH PRN (19:03)
[2021-02-02] MEDS: INSULIN (LEVEMIR) 100 UNITS/ML UNITS SQ SCH (22:26)
[2021-02-03] MEDS ORDERED: ceFAZolin SODIUM 1 GM VIAL ONE ×3 (01:14→17:18)
[2021-02-03] MEDS ORDERED: DEXTROSE 5%-WATER - 50 ML IVPB ONE ×3 (01:14→17:18)
[2021-02-03] MEDS: CEFAZOLIN 1 GM in DEXTROSE 5%-WATER - 1 GM/50 ML IVPB IVPB SCH ×3 (01:17→17:25)
[2021-02-03] MEDS: oxyCODONE HCL 5 MG TABLET PO PRN ×3 (01:17→20:17)
[2021-02-03] MEDS: INSULIN SLIDING SCALE (NOVOLOG) 1 VIAL SQ SCH ×4 (06:15→21:32)
[2021-02-03] MEDS ORDERED: PT OWN MED DRAWER 7, Y5N ONE (06:17)
[2021-02-03] MEDS: glipiZIDE-XL 2.5 MG TAB.ER.24 PO SCH (06:18)
[2021-02-03 10:00] LABS: EOS % 3.4 % (0-4.5); HEMATOCRIT 24.3 % (32.4-45.2); HEMOGLOBIN 8.2 GM/dL (10.7-15.3); LYMPH % 35.3 % (8-40); MCH 26.1 pg (25.7-33.7); MCHC 33.7 g/dl (32.0-36.0); MEAN CELL VOLUME 77.4 fl (80-96); MEAN PLT VOLUME 8.3 fl (7.5-11.1); MONO % 8.4 % (3.8-10.2); NEUT % 51.9 % (42.8-82.8); PLATELET COUNT 336 10^3/uL (134-434); RBC 3.13 M/mm3 (3.60-5.2); RDW 17.8 % (11.6-15.6)
[2021-02-03 10:19] LABS: CALCIUM 8.4 mg/dL (8.5-10.1)
[2021-02-03 10:21] LABS: BLOOD UREA NITROGEN 7.4 mg/dL (7-18); MAGNESIUM 2.2 mg/dL (1.8-2.4)
[2021-02-03 10:24] LABS: BILIRUBIN,TOTAL 0.5 mg/dL (0.2-1)
[2021-02-03 10:31] LABS: CREATININE 1.1 mg/dL (0.55-1.3); TOT PROT 6.9 g/dl (6.4-8.2)
[2021-02-03] MEDS: LISINOPRIL 20 MG TABLET PO SCH (10:36)
[2021-02-03] MEDS: DOCUSATE SODIUM 100 MG CAPSULE (FP) PO SCH (10:36)
[2021-02-03] MEDS: DULoxetine HCL 20 MG CAPSULE.DR PO SCH (10:36)
[2021-02-03] MEDS: PANTOPRAZOLE SODIUM 40 MG VIAL IVPUSH SCH (10:36)
[2021-02-03] MEDS: HYDROCHLOROTHIAZIDE 25 MG TABLET (FP) PO SCH (10:37)
[2021-02-03] MEDS: ALPRAZolam 0.25 MG TABLET PO PRN (20:18)
[2021-02-03] MEDS: INSULIN (LEVEMIR) 100 UNITS/ML UNITS SQ SCH (21:00)
[2021-02-04] MEDS ORDERED: DEXTROSE 5%-WATER - 50 ML IVPB ONE ×3 (01:28→16:45)
[2021-02-04] MEDS ORDERED: ceFAZolin SODIUM 1 GM VIAL ONE ×4 (01:28→16:45)
[2021-02-04] MEDS: CEFAZOLIN 1 GM in DEXTROSE 5%-WATER - 1 GM/50 ML IVPB IVPB SCH ×3 (01:41→17:14)
[2021-02-04] MEDS: oxyCODONE HCL 5 MG TABLET PO PRN (01:49)
[2021-02-04] MEDS: INSULIN SLIDING SCALE (NOVOLOG) 1 VIAL SQ SCH ×4 (06:06→22:27)
[2021-02-04] MEDS ORDERED: INSULIN (NOVOLOG) ASPART 100 UNITS/ML 10ML VIAL ONE (06:10)
[2021-02-04 09:16] LABS: BASO % 0.8 % (0-2.0); EOS % 3.2 % (0-4.5); HEMATOCRIT 27.5 % (32.4-45.2); HEMOGLOBIN 9.1 GM/dL (10.7-15.3); LYMPH % 35.9 % (8-40); MCH 25.7 pg (25.7-33.7); MCHC 32.9 g/dl (32.0-36.0); MEAN CELL VOLUME 78.1 fl (80-96); MEAN PLT VOLUME 8.3 fl (7.5-11.1); MONO % 5.5 % (3.8-10.2); NEUT % 54.6 % (42.8-82.8); PLATELET COUNT 399 10^3/uL (134-434); RBC 3.52 M/mm3 (3.60-5.2); RDW 18.2 % (11.6-15.6); WHITE BLOOD COUNT 6.7 K/mm3 (4.0-10.0)
[2021-02-04 09:21] LABS: INR 0.9 (0.83-1.09); PROTHROMBIN TIME (PATIENT) 10.9 SEC (9.7-13.0)
[2021-02-04 09:26] LABS: CHLORIDE 104 mmol/L (98-107); SODIUM 139 mmol/L (136-145)
[2021-02-04 09:29] LABS: CALCIUM 8.9 mg/dL (8.5-10.1)
[2021-02-04 09:30] LABS: ALBUMIN 3.4 g/dl (3.4-5.0); ANION GAP 6 MMOL/L (8-16); BLOOD UREA NITROGEN 11.3 mg/dL (7-18); CO2 29 mmol/L (21-32); GLUCOSE,RANDOM 72 mg/dL (74-106); MAGNESIUM 2.3 mg/dL (1.8-2.4)
[2021-02-04 09:33] LABS: SGPT/ALT 15 U/L (13-61)
[2021-02-04 09:34] LABS: BILIRUBIN,TOTAL 0.7 mg/dL (0.2-1)
[2021-02-04 09:35] LABS: TOT PROT 7.5 g/dl (6.4-8.2)
[2021-02-04 09:36] LABS: ALK PHOS 89 U/L (45-117)
[2021-02-04 09:37] LABS: SGOT/AST < 3 U/L (15-37)
[2021-02-04] MEDS: LISINOPRIL 20 MG TABLET PO SCH (10:09)
[2021-02-04] MEDS: PANTOPRAZOLE SODIUM 40 MG VIAL IVPUSH SCH (10:09)
[2021-02-04] MEDS: DOCUSATE SODIUM 100 MG CAPSULE (FP) PO SCH (10:09)
[2021-02-04] MEDS: DULoxetine HCL 20 MG CAPSULE.DR PO SCH (10:09)
[2021-02-04] MEDS: HYDROCHLOROTHIAZIDE 25 MG TABLET (FP) PO SCH (10:09)
[2021-02-04] MEDS ORDERED: MIDAZOLAM HCL 2 MG/2 ML SINGLE DOSE VIAL ONE (12:04)
[2021-02-04] MEDS ORDERED: SUCCINYLCHOLINE CHLORIDE 200 MG/10 ML SYRINGE ONE (12:04)
[2021-02-04] MEDS ORDERED: PROPOFOL 20 ML ONE ×2 (12:04)
[2021-02-04] MEDS ORDERED: DEXAMETHASONE SOD PHOSPHATE 4 MG/1 ML VIAL ONE (13:30)
[2021-02-04] MEDS ORDERED: ONDANSETRON 4 MG/2 ML VIAL IVPUSH PRN ×3 (14:02→14:56)
[2021-02-04] MEDS ORDERED: LACTATED RINGERS SOLUTION 1,000 ML IV SCH (14:15)
[2021-02-04] MEDS ORDERED: CYCLOBENZAPRINE HCL 10 MG TABLET (FP) PO PRN (14:56)
[2021-02-04] MEDS ORDERED: oxyCODONE HCL 5 MG TABLET PO PRN (14:56)
[2021-02-04] MEDS: LACTATED RINGERS SOLUTION 1,000 ML IV SCH ×2 (17:18→22:20)
[2021-02-04] MEDS: ACETAMINOPHEN 1000 MG/100 ML VIAL (NON FORMULARY) IVPB PRN (22:21)
[2021-02-04] MEDS: INSULIN (LEVEMIR) 100 UNITS/ML UNITS SQ SCH (22:28)
[2021-02-05] MEDS ORDERED: ceFAZolin SODIUM 1 GM VIAL ONE ×3 (02:19→17:32)
[2021-02-05] MEDS ORDERED: DEXTROSE 5%-WATER - 50 ML IVPB ONE ×3 (02:20→17:32)
[2021-02-05] MEDS: CEFAZOLIN 1 GM in DEXTROSE 5%-WATER - 1 GM/50 ML IVPB IVPB SCH ×3 (02:54→17:50)
[2021-02-05] MEDS: INSULIN SLIDING SCALE (NOVOLOG) 1 VIAL SQ SCH ×4 (06:47→21:35)
[2021-02-05 08:18] LABS: BASO % 0.4 % (0-2.0); EOS % 1.1 % (0-4.5); HEMATOCRIT 25.4 % (32.4-45.2); HEMOGLOBIN 8.3 GM/dL (10.7-15.3); LYMPH % 29.8 % (8-40); MCH 25.4 pg (25.7-33.7); MCHC 32.6 g/dl (32.0-36.0); MEAN CELL VOLUME 77.8 fl (80-96); MONO % 6.8 % (3.8-10.2); NEUT % 61.9 % (42.8-82.8); PLATELET COUNT 373 10^3/uL (134-434); RBC 3.26 M/mm3 (3.60-5.2); RDW 18.2 % (11.6-15.6); WHITE BLOOD COUNT 6.6 K/mm3 (4.0-10.0)
[2021-02-05 08:58] LABS: BLOOD UREA NITROGEN 11.5 mg/dL (7-18); CALCIUM 8.6 mg/dL (8.5-10.1)
[2021-02-05 09:03] LABS: BILIRUBIN,TOTAL 0.4 mg/dL (0.2-1)
[2021-02-05] MEDS: LISINOPRIL 20 MG TABLET PO SCH (09:48)
[2021-02-05] MEDS: DOCUSATE SODIUM 100 MG CAPSULE (FP) PO SCH (09:49)
[2021-02-05] MEDS: PANTOPRAZOLE SODIUM 40 MG VIAL IVPUSH SCH (09:49)
[2021-02-05] MEDS: DULoxetine HCL 20 MG CAPSULE.DR PO SCH (09:49)
[2021-02-05] MEDS: HYDROCHLOROTHIAZIDE 25 MG TABLET (FP) PO SCH (09:49)
[2021-02-05] MEDS ORDERED: POLYETHYLENE GLYCOL 3350 119 GM BTL PO SCH (10:00)
[2021-02-05] MEDS ORDERED: BISACODYL 10 MG SUPP.RECT PR ONE (10:11)
[2021-02-05] MEDS ORDERED: PT OWN MED DRAWER 7, Y5N ONE (10:48)
[2021-02-05] MEDS: ACETAMINOPHEN 1000 MG/100 ML VIAL (NON FORMULARY) IVPB PRN (16:14)
[2021-02-05] MEDS: LACTATED RINGERS SOLUTION 1,000 ML IV SCH (16:15)
[2021-02-05] MEDS: oxyCODONE HCL 5 MG TABLET PO PRN (21:32)
[2021-02-05] MEDS: INSULIN (LEVEMIR) 100 UNITS/ML UNITS SQ SCH (21:35)
[2021-02-06] MEDS ORDERED: ceFAZolin SODIUM 1 GM VIAL ONE ×3 (02:16→17:53)
[2021-02-06] MEDS ORDERED: DEXTROSE 5%-WATER - 50 ML IVPB ONE ×3 (02:17→17:53)
[2021-02-06] MEDS: CEFAZOLIN 1 GM in DEXTROSE 5%-WATER - 1 GM/50 ML IVPB IVPB SCH ×3 (02:29→17:55)
[2021-02-06] MEDS: INSULIN SLIDING SCALE (NOVOLOG) 1 VIAL SQ SCH ×4 (07:00→21:35)
[2021-02-06 08:52] LABS: BASO % 0.7 % (0-2.0); EOS % 3.5 % (0-4.5); HEMATOCRIT 25.3 % (32.4-45.2); HEMOGLOBIN 8.1 GM/dL (10.7-15.3); LYMPH % 32.3 % (8-40); MCH 25.2 pg (25.7-33.7); MEAN CELL VOLUME 78.7 fl (80-96); MEAN PLT VOLUME 7.9 fl (7.5-11.1); MONO % 7.2 % (3.8-10.2); NEUT % 56.3 % (42.8-82.8); PLATELET COUNT 372 10^3/uL (134-434); RBC 3.22 M/mm3 (3.60-5.2); WHITE BLOOD COUNT 6.8 K/mm3 (4.0-10.0)
[2021-02-06] MEDS: POLYETHYLENE GLYCOL (HEALTHYLAX) 3350 17 GM PACKET PO SCH (09:11)
[2021-02-06] MEDS: HYDROCHLOROTHIAZIDE 25 MG TABLET (FP) PO SCH (09:11)
[2021-02-06] MEDS: DOCUSATE SODIUM 100 MG CAPSULE (FP) PO SCH (09:11)
[2021-02-06] MEDS: LISINOPRIL 20 MG TABLET PO SCH (09:11)
[2021-02-06] MEDS: DULoxetine HCL 20 MG CAPSULE.DR PO SCH (09:11)
[2021-02-06 09:17] LABS: CHLORIDE 106 mmol/L (98-107); SODIUM 140 mmol/L (136-145)
[2021-02-06 09:21] LABS: ANION GAP 4 MMOL/L (8-16); CO2 30 mmol/L (21-32)
[2021-02-06 09:23] LABS: BLOOD UREA NITROGEN 10.7 mg/dL (7-18); CALCIUM 8.7 mg/dL (8.5-10.1)
[2021-02-06 09:24] LABS: GLUCOSE,RANDOM 90 mg/dL (74-106); MAGNESIUM 2.1 mg/dL (1.8-2.4)
[2021-02-06 09:26] LABS: CREATININE 0.9 mg/dL (0.55-1.3); SGOT/AST 4 U/L (15-37)
[2021-02-06 09:28] LABS: BILIRUBIN,TOTAL 0.4 mg/dL (0.2-1)
[2021-02-06 09:29] LABS: ALK PHOS 70 U/L (45-117); TOT PROT 6.2 g/dl (6.4-8.2)
[2021-02-06 09:31] LABS: ALBUMIN 3.1 g/dl (3.4-5.0); SGPT/ALT < 6 U/L (13-61)
[2021-02-06] MEDS: PANTOPRAZOLE SODIUM 40 MG VIAL IVPUSH SCH (11:35)
[2021-02-06] MEDS: Methylnaltrexone Bromide 12 MG/0.6 ML KIT SQ SCH (13:01)
[2021-02-06] MEDS: ACETAMINOPHEN 1000 MG/100 ML VIAL (NON FORMULARY) IVPB PRN (13:14)
[2021-02-06] MEDS: LACTATED RINGERS SOLUTION 1,000 ML IV SCH ×2 (17:02→18:21)
[2021-02-06] MEDS ORDERED: MINERAL OIL ENEMA 133 ML ENEMA RC ONE (17:05)
[2021-02-06] MEDS: INSULIN (LEVEMIR) 100 UNITS/ML UNITS SQ SCH (21:35)
[2021-02-06] MEDS: oxyCODONE HCL 5 MG TABLET PO PRN (21:36)
[2021-02-06] MEDS: MELATONIN 5 MG TABLETS PO PRN (21:36)
[2021-02-07] MEDS ORDERED: DEXTROSE 5%-WATER - 50 ML IVPB ONE ×3 (01:58→17:30)
[2021-02-07] MEDS ORDERED: ceFAZolin SODIUM 1 GM VIAL ONE ×3 (01:58→17:30)
[2021-02-07] MEDS: CEFAZOLIN 1 GM in DEXTROSE 5%-WATER - 1 GM/50 ML IVPB IVPB SCH ×4 (02:17→17:34)
[2021-02-07] MEDS: INSULIN SLIDING SCALE (NOVOLOG) 1 VIAL SQ SCH ×4 (06:16→22:26)
[2021-02-07] MEDS: PANTOPRAZOLE SODIUM 40 MG VIAL IVPUSH SCH (09:06)
[2021-02-07] MEDS: POLYETHYLENE GLYCOL (HEALTHYLAX) 3350 17 GM PACKET PO SCH (09:06)
[2021-02-07] MEDS: LISINOPRIL 20 MG TABLET PO SCH (09:08)
[2021-02-07] MEDS: DULoxetine HCL 20 MG CAPSULE.DR PO SCH (09:09)
[2021-02-07] MEDS: HYDROCHLOROTHIAZIDE 25 MG TABLET (FP) PO SCH (09:09)
[2021-02-07] MEDS: DOCUSATE SODIUM 100 MG CAPSULE (FP) PO SCH (09:09)
[2021-02-07] MEDS ORDERED: PT OWN MED DRAWER 7, Y5N ONE ×2 (09:17→12:18)
[2021-02-07] MEDS: Methylnaltrexone Bromide 12 MG/0.6 ML KIT SQ SCH (12:20)
[2021-02-07] MEDS ORDERED: POLYETHYLENE GLYCOL 3350 119 GM BTL PO ONE (12:30)
[2021-02-07 13:00] LABS: BASO % 0.5 % (0-2.0); EOS % 2.8 % (0-4.5); HEMATOCRIT 25.7 % (32.4-45.2); HEMOGLOBIN 8.3 GM/dL (10.7-15.3); LYMPH % 33.5 % (8-40); MCH 25.7 pg (25.7-33.7); MCHC 32.5 g/dl (32.0-36.0); MEAN PLT VOLUME 8.1 fl (7.5-11.1); MONO % 7.7 % (3.8-10.2); NEUT % 55.5 % (42.8-82.8); PLATELET COUNT 385 10^3/uL (134-434); RBC 3.25 M/mm3 (3.60-5.2); RDW 18.5 % (11.6-15.6); WHITE BLOOD COUNT 5.7 K/mm3 (4.0-10.0)
[2021-02-07 13:29] LABS: ALBUMIN 3.1 g/dl (3.4-5.0); BLOOD UREA NITROGEN 10.5 mg/dL (7-18); CALCIUM 8.7 mg/dL (8.5-10.1)
[2021-02-07 13:32] LABS: CREATININE 0.9 mg/dL (0.55-1.3)
[2021-02-07 13:34] LABS: BILIRUBIN,TOTAL 0.4 mg/dL (0.2-1); TOT PROT 6.3 g/dl (6.4-8.2)
[2021-02-07] MEDS: ALPRAZolam 0.25 MG TABLET PO PRN (16:24)
[2021-02-07] MEDS ORDERED: POLYETHYLENE GLYCOL (HEALTHYLAX) 3350 17 GM PACKET PO ONE (16:30)
[2021-02-07] MEDS: LACTATED RINGERS SOLUTION 1,000 ML IV SCH (16:35)
[2021-02-07] MEDS: oxyCODONE HCL 5 MG TABLET PO PRN (17:33)
[2021-02-07] MEDS: INSULIN (LEVEMIR) 100 UNITS/ML UNITS SQ SCH (22:27)
[2021-02-08] MEDS: oxyCODONE HCL 5 MG TABLET PO PRN ×2 (00:45→17:17)
[2021-02-08] MEDS ORDERED: ceFAZolin SODIUM 1 GM VIAL ONE ×3 (02:10→16:42)
[2021-02-08] MEDS ORDERED: DEXTROSE 5%-WATER - 50 ML IVPB ONE ×3 (02:11→16:42)
[2021-02-08] MEDS: CEFAZOLIN 1 GM in DEXTROSE 5%-WATER - 1 GM/50 ML IVPB IVPB SCH ×3 (02:13→17:19)
[2021-02-08] MEDS: LACTATED RINGERS SOLUTION 1,000 ML IV SCH ×2 (02:14→17:20)
[2021-02-08] MEDS: INSULIN SLIDING SCALE (NOVOLOG) 1 VIAL SQ SCH ×4 (06:37→21:55)
[2021-02-08] MEDS ORDERED: PT OWN MED DRAWER 7, Y5N ONE ×2 (09:26→13:37)
[2021-02-08] MEDS: POLYETHYLENE GLYCOL (HEALTHYLAX) 3350 17 GM PACKET PO SCH (09:35)
[2021-02-08] MEDS: HYDROCHLOROTHIAZIDE 25 MG TABLET (FP) PO SCH (09:36)
[2021-02-08] MEDS: LISINOPRIL 20 MG TABLET PO SCH (09:36)
[2021-02-08] MEDS: PANTOPRAZOLE SODIUM 40 MG VIAL IVPUSH SCH (09:36)
[2021-02-08] MEDS: DOCUSATE SODIUM 100 MG CAPSULE (FP) PO SCH (09:36)
[2021-02-08] MEDS: DULoxetine HCL 20 MG CAPSULE.DR PO SCH (09:36)
[2021-02-08] MEDS: ALPRAZolam 0.25 MG TABLET PO PRN (13:40)
[2021-02-08] MEDS: Methylnaltrexone Bromide 12 MG/0.6 ML KIT SQ SCH (13:40)
[2021-02-08 14:15] LABS: BASO % 0.8 % (0-2.0); EOS % 3.7 % (0-4.5); HEMATOCRIT 24.4 % (32.4-45.2); LYMPH % 30.7 % (8-40); MCH 25.6 pg (25.7-33.7); MCHC 32.7 g/dl (32.0-36.0); MEAN CELL VOLUME 78.3 fl (80-96); MEAN PLT VOLUME 8.3 fl (7.5-11.1); MONO % 6.6 % (3.8-10.2); NEUT % 58.2 % (42.8-82.8); PLATELET COUNT 343 10^3/uL (134-434); RBC 3.11 M/mm3 (3.60-5.2); RDW 18.4 % (11.6-15.6); WHITE BLOOD COUNT 6.3 K/mm3 (4.0-10.0)
[2021-02-08 14:35] LABS: CALCIUM 8.4 mg/dL (8.5-10.1)
[2021-02-08 14:36] LABS: ALBUMIN 2.9 g/dl (3.4-5.0); BLOOD UREA NITROGEN 13.3 mg/dL (7-18); MAGNESIUM 1.9 mg/dL (1.8-2.4)
[2021-02-08 14:39] LABS: CREATININE 0.8 mg/dL (0.55-1.3)
[2021-02-08 14:40] LABS: BILIRUBIN,TOTAL 0.3 mg/dL (0.2-1)
[2021-02-08 14:41] LABS: TOT PROT 5.8 g/dl (6.4-8.2)
[2021-02-08] MEDS: MELATONIN 5 MG TABLETS PO PRN (21:56)
[2021-02-08] MEDS: INSULIN (LEVEMIR) 100 UNITS/ML UNITS SQ SCH (21:56)
[2021-02-09] MEDS: oxyCODONE HCL 5 MG TABLET PO PRN ×3 (00:48→23:28)
[2021-02-09] MEDS ORDERED: ceFAZolin SODIUM 1 GM VIAL ONE ×3 (01:28→18:13)
[2021-02-09] MEDS ORDERED: DEXTROSE 5%-WATER - 50 ML IVPB ONE ×3 (01:28→18:13)
[2021-02-09] MEDS: CEFAZOLIN 1 GM in DEXTROSE 5%-WATER - 1 GM/50 ML IVPB IVPB SCH ×3 (01:30→18:17)
[2021-02-09] MEDS: LACTATED RINGERS SOLUTION 1,000 ML IV SCH (06:46)
[2021-02-09] MEDS: INSULIN SLIDING SCALE (NOVOLOG) 1 VIAL SQ SCH ×4 (06:54→21:24)
[2021-02-09 08:08] LABS: EOS % 4.7 % (0-4.5); HEMATOCRIT 23.2 % (32.4-45.2); HEMOGLOBIN 7.7 GM/dL (10.7-15.3); LYMPH % 35.1 % (8-40); MCH 25.7 pg (25.7-33.7); MCHC 33.1 g/dl (32.0-36.0); MEAN CELL VOLUME 77.8 fl (80-96); MEAN PLT VOLUME 8.3 fl (7.5-11.1); NEUT % 51.2 % (42.8-82.8); PLATELET COUNT 335 10^3/uL (134-434); RBC 2.97 M/mm3 (3.60-5.2); WHITE BLOOD COUNT 5.2 K/mm3 (4.0-10.0)
[2021-02-09 08:24] LABS: CHLORIDE 109 mmol/L (98-107); SODIUM 140 mmol/L (136-145)
[2021-02-09 08:32] LABS: ALBUMIN 2.8 g/dl (3.4-5.0); ANION GAP 1 MMOL/L (8-16); CALCIUM 8.2 mg/dL (8.5-10.1); CO2 30 mmol/L (21-32)
[2021-02-09 08:33] LABS: BLOOD UREA NITROGEN 10.8 mg/dL (7-18); GLUCOSE,RANDOM 87 mg/dL (74-106); SGOT/AST 11 U/L (15-37)
[2021-02-09 08:35] LABS: BILIRUBIN,TOTAL 0.4 mg/dL (0.2-1); TOT PROT 5.6 g/dl (6.4-8.2)
[2021-02-09 08:36] LABS: ALK PHOS 70 U/L (45-117); CREATININE 0.8 mg/dL (0.55-1.3); SGPT/ALT < 6 U/L (13-61)
[2021-02-09] MEDS ORDERED: PT OWN MED DRAWER 7, Y5N ONE ×2 (09:37→11:25)
[2021-02-09] MEDS: HYDROCHLOROTHIAZIDE 25 MG TABLET (FP) PO SCH (09:46)
[2021-02-09] MEDS: DULoxetine HCL 20 MG CAPSULE.DR PO SCH (09:46)
[2021-02-09] MEDS: POLYETHYLENE GLYCOL (HEALTHYLAX) 3350 17 GM PACKET PO SCH (09:46)
[2021-02-09] MEDS: LISINOPRIL 20 MG TABLET PO SCH (09:46)
[2021-02-09] MEDS: DOCUSATE SODIUM 100 MG CAPSULE (FP) PO SCH (09:46)
[2021-02-09] MEDS: PANTOPRAZOLE SODIUM 40 MG VIAL IVPUSH SCH (09:48)
[2021-02-09] MEDS: Methylnaltrexone Bromide 12 MG/0.6 ML KIT SQ SCH (11:23)
[2021-02-09] MEDS: INSULIN (LEVEMIR) 100 UNITS/ML UNITS SQ SCH (21:24)
[2021-02-09] MEDS: MELATONIN 5 MG TABLETS PO PRN (23:28)
[2021-02-10] MEDS ORDERED: DEXTROSE 5%-WATER - 50 ML IVPB ONE ×3 (01:33→17:37)
[2021-02-10] MEDS ORDERED: ceFAZolin SODIUM 1 GM VIAL ONE ×3 (01:33→17:37)
[2021-02-10] MEDS: CEFAZOLIN 1 GM in DEXTROSE 5%-WATER - 1 GM/50 ML IVPB IVPB SCH ×3 (01:39→17:44)
[2021-02-10] MEDS: INSULIN SLIDING SCALE (NOVOLOG) 1 VIAL SQ SCH ×4 (06:16→21:29)
[2021-02-10 08:06] LABS: BASO % 1.3 % (0-2.0); HEMATOCRIT 24.9 % (32.4-45.2); HEMOGLOBIN 8.1 GM/dL (10.7-15.3); MCH 25.2 pg (25.7-33.7); MCHC 32.4 g/dl (32.0-36.0); MEAN CELL VOLUME 77.8 fl (80-96); MEAN PLT VOLUME 8.2 fl (7.5-11.1); MONO % 8.6 % (3.8-10.2); NEUT % 55.1 % (42.8-82.8); PLATELET COUNT 370 10^3/uL (134-434); RDW 18.5 % (11.6-15.6); WHITE BLOOD COUNT 5.4 K/mm3 (4.0-10.0)
[2021-02-10 08:26] LABS: BLOOD UREA NITROGEN 13.4 mg/dL (7-18)
[2021-02-10 08:27] LABS: CALCIUM 8.6 mg/dL (8.5-10.1)
[2021-02-10 08:29] LABS: CREATININE 0.8 mg/dL (0.55-1.3)
[2021-02-10 08:31] LABS: BILIRUBIN,TOTAL 0.4 mg/dL (0.2-1)
[2021-02-10] MEDS: HYDROCHLOROTHIAZIDE 25 MG TABLET (FP) PO SCH (09:09)
[2021-02-10] MEDS: LISINOPRIL 20 MG TABLET PO SCH (09:09)
[2021-02-10] MEDS: DOCUSATE SODIUM 100 MG CAPSULE (FP) PO SCH (09:09)
[2021-02-10] MEDS: DULoxetine HCL 20 MG CAPSULE.DR PO SCH (09:09)
[2021-02-10] MEDS: PANTOPRAZOLE 40 MG TABLET PO SCH (09:09)
[2021-02-10] MEDS: POLYETHYLENE GLYCOL (HEALTHYLAX) 3350 17 GM PACKET PO SCH (09:10)
[2021-02-10] MEDS ORDERED: INSULIN (NOVOLOG) ASPART 100 UNITS/ML 10ML VIAL ONE (21:08)
[2021-02-10] MEDS: INSULIN (LEVEMIR) 100 UNITS/ML UNITS SQ SCH (21:29)
[2021-02-10] MEDS: oxyCODONE HCL 5 MG TABLET PO PRN (21:29)
[2021-02-10] MEDS: MELATONIN 5 MG TABLETS PO PRN (21:30)
[2021-02-11] MEDS ORDERED: DEXTROSE 5%-WATER - 50 ML IVPB ONE ×3 (01:30→17:13)
[2021-02-11] MEDS ORDERED: ceFAZolin SODIUM 1 GM VIAL ONE ×3 (01:30→17:12)
[2021-02-11] MEDS: CEFAZOLIN 1 GM in DEXTROSE 5%-WATER - 1 GM/50 ML IVPB IVPB SCH ×3 (01:50→17:19)
[2021-02-11] MEDS: oxyCODONE HCL 5 MG TABLET PO PRN ×2 (04:39→22:00)
[2021-02-11] MEDS: INSULIN SLIDING SCALE (NOVOLOG) 1 VIAL SQ SCH ×4 (06:12→21:41)
[2021-02-11 07:29] LABS: BASO % 1.1 % (0-2.0); EOS % 3.7 % (0-4.5); HEMATOCRIT 28.4 % (32.4-45.2); HEMOGLOBIN 9.2 GM/dL (10.7-15.3); LYMPH % 30.2 % (8-40); MCH 25.1 pg (25.7-33.7); MCHC 32.3 g/dl (32.0-36.0); MEAN CELL VOLUME 77.9 fl (80-96); MEAN PLT VOLUME 8.2 fl (7.5-11.1); PLATELET COUNT 445 10^3/uL (134-434); RBC 3.65 M/mm3 (3.60-5.2); RDW 18.3 % (11.6-15.6); WHITE BLOOD COUNT 5.7 K/mm3 (4.0-10.0)
[2021-02-11 07:47] LABS: ALBUMIN 3.4 g/dl (3.4-5.0); BLOOD UREA NITROGEN 10.6 mg/dL (7-18); CALCIUM 8.9 mg/dL (8.5-10.1); MAGNESIUM 2.1 mg/dL (1.8-2.4)
[2021-02-11 07:51] LABS: CREATININE 0.8 mg/dL (0.55-1.3)
[2021-02-11 07:52] LABS: BILIRUBIN,TOTAL 0.6 mg/dL (0.2-1); TOT PROT 6.8 g/dl (6.4-8.2)
[2021-02-11] MEDS: POLYETHYLENE GLYCOL (HEALTHYLAX) 3350 17 GM PACKET PO SCH (09:01)
[2021-02-11] MEDS: DOCUSATE SODIUM 100 MG CAPSULE (FP) PO SCH (09:02)
[2021-02-11] MEDS: DULoxetine HCL 20 MG CAPSULE.DR PO SCH (09:02)
[2021-02-11] MEDS: LISINOPRIL 20 MG TABLET PO SCH (09:02)
[2021-02-11] MEDS: HYDROCHLOROTHIAZIDE 25 MG TABLET (FP) PO SCH (09:02)
[2021-02-11] MEDS: PANTOPRAZOLE 40 MG TABLET PO SCH (09:02)
[2021-02-11] MEDS ORDERED: INSULIN (NOVOLOG) ASPART 100 UNITS/ML 10ML VIAL ONE (20:23)
[2021-02-11] MEDS: MELATONIN 5 MG TABLETS PO PRN (21:35)
[2021-02-11] MEDS: INSULIN (LEVEMIR) 100 UNITS/ML UNITS SQ SCH (21:40)
[2021-02-12] MEDS ORDERED: DEXTROSE 5%-WATER - 50 ML IVPB ONE ×3 (01:40→16:48)
[2021-02-12] MEDS ORDERED: ceFAZolin SODIUM 1 GM VIAL ONE ×3 (01:40→16:48)
[2021-02-12] MEDS: CEFAZOLIN 1 GM in DEXTROSE 5%-WATER - 1 GM/50 ML IVPB IVPB SCH ×3 (01:58→17:04)
[2021-02-12] MEDS: INSULIN SLIDING SCALE (NOVOLOG) 1 VIAL SQ SCH ×4 (07:05→21:07)
[2021-02-12 08:22] LABS: BASO % 1.3 % (0-2.0); EOS % 3.5 % (0-4.5); HEMATOCRIT 27.2 % (32.4-45.2); HEMOGLOBIN 8.9 GM/dL (10.7-15.3); LYMPH % 26.8 % (8-40); MCH 25.3 pg (25.7-33.7); MCHC 32.7 g/dl (32.0-36.0); MEAN CELL VOLUME 77.4 fl (80-96); MEAN PLT VOLUME 8.2 fl (7.5-11.1); MONO % 8.4 % (3.8-10.2); PLATELET COUNT 410 10^3/uL (134-434); RBC 3.51 M/mm3 (3.60-5.2); RDW 18.8 % (11.6-15.6); WHITE BLOOD COUNT 5.6 K/mm3 (4.0-10.0)
[2021-02-12 08:26] LABS: INR 1.06 (0.83-1.09); PROTHROMBIN TIME (PATIENT) 12.8 SEC (9.7-13.0)
[2021-02-12 08:41] LABS: CHLORIDE 105 mmol/L (98-107); SODIUM 139 mmol/L (136-145)
[2021-02-12 08:49] LABS: ALBUMIN 3.5 g/dl (3.4-5.0); ANION GAP 6 MMOL/L (8-16); BLOOD UREA NITROGEN 15.6 mg/dL (7-18); CALCIUM 8.9 mg/dL (8.5-10.1); CO2 27 mmol/L (21-32); MAGNESIUM 2.2 mg/dL (1.8-2.4)
[2021-02-12 08:50] LABS: GLUCOSE,RANDOM 123 mg/dL (74-106)
[2021-02-12 08:52] LABS: SGOT/AST 8 U/L (15-37)
[2021-02-12 08:53] LABS: BILIRUBIN,TOTAL 0.5 mg/dL (0.2-1); CREATININE 0.9 mg/dL (0.55-1.3); TOT PROT 6.8 g/dl (6.4-8.2)
[2021-02-12 08:55] LABS: ALK PHOS 86 U/L (45-117)
[2021-02-12 08:56] LABS: SGPT/ALT < 6 U/L (13-61)
[2021-02-12] MEDS: LISINOPRIL 20 MG TABLET PO SCH (10:30)
[2021-02-12] MEDS: HYDROCHLOROTHIAZIDE 25 MG TABLET (FP) PO SCH (10:30)
[2021-02-12] MEDS ORDERED: DEXAMETHASONE SOD PHOSPHATE 4 MG/1 ML VIAL ONE (12:15)
[2021-02-12] MEDS ORDERED: LIDOCAINE HCL/PF 2% SDV 5ML VIAL ONE (12:15)
[2021-02-12] MEDS ORDERED: PROPOFOL 20 ML ONE ×2 (12:16→13:46)
[2021-02-12] MEDS ORDERED: MIDAZOLAM HCL 2 MG/2 ML SINGLE DOSE VIAL ONE ×2 (12:16→14:16)
[2021-02-12] MEDS ORDERED: ROCURONIUM BROMIDE 50 MG/5 ML SYRINGE ONE (12:16)
[2021-02-12] MEDS ORDERED: NEOSTIGMINE METHYLSULFATE 0.5 MG/ML - 10 ML MDV ONE (13:22)
[2021-02-12] MEDS ORDERED: hydrALAZINE HCL 20 MG/ML VIAL ONE (13:45)
[2021-02-12] MEDS ORDERED: HYDROmorphone HCl 2 MG/ML VIAL ONE ×2 (13:56→14:35)
[2021-02-12] MEDS ORDERED: KETOROLAC TROMETHAMINE 30 MG/1 ML VIAL IVPUSH ONE ×2 (14:09→14:15)
[2021-02-12] MEDS ORDERED: MIDAZOLAM HCL 2 MG/2 ML SINGLE DOSE VIAL IVPUSH ONE ×2 (14:19→14:30)
[2021-02-12] MEDS ORDERED: HYDROmorphone HCl 2 MG/ML VIAL IVPB ONE (14:30)
[2021-02-12] MEDS ORDERED: ONDANSETRON 4 MG/2 ML VIAL IVPUSH PRN (14:32)
[2021-02-12] MEDS ORDERED: oxyCODONE HCL 5 MG TABLET PO PRN (14:32)
[2021-02-12] MEDS ORDERED: CYCLOBENZAPRINE HCL 10 MG TABLET (FP) PO PRN (14:32)
[2021-02-12] MEDS ORDERED: HYDROmorphone HCl 2 MG/ML VIAL IVPUSH ONE ×2 (14:43→15:04)
[2021-02-12] MEDS: DOCUSATE SODIUM 100 MG CAPSULE (FP) PO SCH (15:40)
[2021-02-12] MEDS: DULoxetine HCL 20 MG CAPSULE.DR PO SCH (15:40)
[2021-02-12] MEDS: PANTOPRAZOLE 40 MG TABLET PO SCH (15:50)
[2021-02-12] MEDS: POLYETHYLENE GLYCOL (HEALTHYLAX) 3350 17 GM PACKET PO SCH (17:06)
[2021-02-12] MEDS ORDERED: INSULIN (NOVOLOG) ASPART 100 UNITS/ML 10ML VIAL ONE (20:34)
[2021-02-12] MEDS: MELATONIN 5 MG TABLETS PO PRN (20:54)
[2021-02-12] MEDS: INSULIN (LEVEMIR) 100 UNITS/ML UNITS SQ SCH (21:07)
[2021-02-13] MEDS ORDERED: DEXTROSE 5%-WATER - 50 ML IVPB ONE ×3 (00:06→17:08)
[2021-02-13] MEDS ORDERED: ceFAZolin SODIUM 1 GM VIAL ONE ×3 (00:06→17:08)
[2021-02-13] MEDS: CEFAZOLIN 1 GM in DEXTROSE 5%-WATER - 1 GM/50 ML IVPB IVPB SCH ×3 (01:17→17:12)
[2021-02-13] MEDS: oxyCODONE HCL 5 MG TABLET PO PRN ×2 (04:40→14:47)
[2021-02-13] MEDS: INSULIN SLIDING SCALE (NOVOLOG) 1 VIAL SQ SCH ×4 (06:19→21:22)
[2021-02-13] MEDS: POLYETHYLENE GLYCOL (HEALTHYLAX) 3350 17 GM PACKET PO SCH (09:10)
[2021-02-13] MEDS: PANTOPRAZOLE 40 MG TABLET PO SCH (09:11)
[2021-02-13] MEDS: LISINOPRIL 20 MG TABLET PO SCH (09:12)
[2021-02-13] MEDS: DULoxetine HCL 20 MG CAPSULE.DR PO SCH (09:12)
[2021-02-13] MEDS: DOCUSATE SODIUM 100 MG CAPSULE (FP) PO SCH (09:12)
[2021-02-13] MEDS: HYDROCHLOROTHIAZIDE 25 MG TABLET (FP) PO SCH (09:12)
[2021-02-13] MEDS ORDERED: INSULIN (NOVOLOG) ASPART 100 UNITS/ML 10ML VIAL ONE (10:59)
[2021-02-13 11:28] LABS: BASO % 0.5 % (0-2.0); HEMATOCRIT 25.9 % (32.4-45.2); HEMOGLOBIN 8.5 GM/dL (10.7-15.3); LYMPH % 17.5 % (8-40); MCH 25.5 pg (25.7-33.7); MCHC 32.9 g/dl (32.0-36.0); MEAN CELL VOLUME 77.5 fl (80-96); MEAN PLT VOLUME 8.4 fl (7.5-11.1); MONO % 4.4 % (3.8-10.2); NEUT % 76.6 % (42.8-82.8); PLATELET COUNT 354 10^3/uL (134-434); RBC 3.34 M/mm3 (3.60-5.2); RDW 18.6 % (11.6-15.6); WHITE BLOOD COUNT 10.5 K/mm3 (4.0-10.0)
[2021-02-13 11:46] LABS: CHLORIDE 105 mmol/L (98-107); SODIUM 137 mmol/L (136-145)
[2021-02-13 11:50] LABS: ALBUMIN 3.3 g/dl (3.4-5.0)
[2021-02-13 11:51] LABS: ANION GAP 4 MMOL/L (8-16); BLOOD UREA NITROGEN 21.5 mg/dL (7-18); CO2 28 mmol/L (21-32); GLUCOSE,RANDOM 160 mg/dL (74-106); MAGNESIUM 2.2 mg/dL (1.8-2.4)
[2021-02-13 11:54] LABS: SGOT/AST 6 U/L (15-37)
[2021-02-13 11:55] LABS: BILIRUBIN,TOTAL 0.4 mg/dL (0.2-1); TOT PROT 6.6 g/dl (6.4-8.2)
[2021-02-13 11:56] LABS: ALK PHOS 82 U/L (45-117); SGPT/ALT < 6 U/L (13-61)
[2021-02-13] MEDS ORDERED: HYDROmorphone HCl 2 MG/ML VIAL IVPB ONE ×2 (13:09→14:00)
[2021-02-13] MEDS: ALPRAZolam 0.25 MG TABLET PO PRN (13:41)
[2021-02-13] MEDS ORDERED: diazePAM 5 MG TABLET PO ONE (14:30)
[2021-02-13] MEDS ORDERED: HYDROmorphone HCl 2 MG/ML VIAL IVPB PRN (16:29)
[2021-02-13] MEDS ORDERED: KETOROLAC TROMETHAMINE 30 MG/1 ML VIAL IVPB ONE (16:30)
[2021-02-13] MEDS ORDERED: oxyCODONE HCL 5 MG TABLET PO ONE (16:30)
[2021-02-13 16:47] VITALS: BMI 27.2
[2021-02-13] MEDS: LIDOCAINE 5% TOPICAL PATCH TP SCH (18:36)
[2021-02-13] MEDS: INSULIN (LEVEMIR) 100 UNITS/ML UNITS SQ SCH (21:20)
[2021-02-14] MEDS: oxyCODONE HCL 5 MG TABLET PO PRN ×3 (00:37→14:15)
[2021-02-14] MEDS: MELATONIN 5 MG TABLETS PO PRN (00:37)
[2021-02-14] MEDS ORDERED: DEXTROSE 5%-WATER - 50 ML IVPB ONE ×3 (01:40→16:47)
[2021-02-14] MEDS ORDERED: ceFAZolin SODIUM 1 GM VIAL ONE ×3 (01:40→16:47)
[2021-02-14] MEDS: CEFAZOLIN 1 GM in DEXTROSE 5%-WATER - 1 GM/50 ML IVPB IVPB SCH ×3 (01:44→17:09)
[2021-02-14] MEDS: ALPRAZolam 0.25 MG TABLET PO PRN (01:44)
[2021-02-14] MEDS: LIDOCAINE PATCH REMOVAL MC SCH (06:56)
[2021-02-14] MEDS: INSULIN SLIDING SCALE (NOVOLOG) 1 VIAL SQ SCH ×4 (06:57→22:00)
[2021-02-14] MEDS ORDERED: ACETAMINOPHEN 325 MG TABLET (FP) PO PRN (07:35)
[2021-02-14 08:12] LABS: BASO % 0.4 % (0-2.0); EOS % 0.1 % (0-4.5); HEMATOCRIT 25.8 % (32.4-45.2); HEMOGLOBIN 8.2 GM/dL (10.7-15.3); LYMPH % 13.5 % (8-40); MCH 24.7 pg (25.7-33.7); MCHC 31.9 g/dl (32.0-36.0); MEAN CELL VOLUME 77.3 fl (80-96); MEAN PLT VOLUME 8.4 fl (7.5-11.1); PLATELET COUNT 324 10^3/uL (134-434); RBC 3.34 M/mm3 (3.60-5.2); RDW 19.4 % (11.6-15.6); WHITE BLOOD COUNT 13.5 K/mm3 (4.0-10.0)
[2021-02-14 08:26] LABS: CHLORIDE 103 mmol/L (98-107); SODIUM 137 mmol/L (136-145)
[2021-02-14 08:28] LABS: ALBUMIN 3.1 g/dl (3.4-5.0)
[2021-02-14 08:29] LABS: ANION GAP 6 MMOL/L (8-16); BLOOD UREA NITROGEN 28.3 mg/dL (7-18); CALCIUM 8.3 mg/dL (8.5-10.1); CO2 27 mmol/L (21-32); GLUCOSE,RANDOM 111 mg/dL (74-106)
[2021-02-14 08:32] LABS: CREATININE 1.1 mg/dL (0.55-1.3); SGOT/AST 6 U/L (15-37)
[2021-02-14 08:34] LABS: BILIRUBIN,TOTAL 0.8 mg/dL (0.2-1); TOT PROT 6.2 g/dl (6.4-8.2)
[2021-02-14 08:35] LABS: ALK PHOS 74 U/L (45-117)
[2021-02-14 08:50] LABS: SGPT/ALT < 6 U/L (13-61)
[2021-02-14] MEDS: PANTOPRAZOLE 40 MG TABLET PO SCH (09:30)
[2021-02-14] MEDS: DULoxetine HCL 20 MG CAPSULE.DR PO SCH (09:30)
[2021-02-14] MEDS: POLYETHYLENE GLYCOL (HEALTHYLAX) 3350 17 GM PACKET PO SCH (09:30)
[2021-02-14] MEDS: DOCUSATE SODIUM 100 MG CAPSULE (FP) PO SCH (09:30)
[2021-02-14] MEDS: LISINOPRIL 20 MG TABLET PO SCH (09:30)
[2021-02-14] MEDS: HYDROCHLOROTHIAZIDE 25 MG TABLET (FP) PO SCH (09:30)
[2021-02-14] MEDS: ACETAMINOPHEN 500 MG TABLET (FP) PO SCH ×3 (10:30→22:04)
[2021-02-14] MEDS ORDERED: PT OWN MED DRAWER 7, Y5N ONE (11:11)
[2021-02-14] MEDS: CELECOXIB 200 MG CAPSULE PO SCH (11:13)
[2021-02-14] MEDS ORDERED: LISINOPRIL 10 MG TABLET PO SCH (13:36)
[2021-02-14] MEDS ORDERED: GABAPENTIN 300 MG CAPSULE PO SCH (14:00)
[2021-02-14] MEDS ORDERED: DULoxetine HCL 30 MG CAPSULE.DR PO SCH (14:38)
[2021-02-14] MEDS: LIDOCAINE 5% TOPICAL PATCH TP SCH (17:19)
[2021-02-14] MEDS: INSULIN (LEVEMIR) 100 UNITS/ML UNITS SQ SCH (22:06)
[2021-02-14] MEDS: GABAPENTIN 400 MG CAPSULE PO SCH (22:06)
[2021-02-15] MEDS: ACETAMINOPHEN 500 MG TABLET (FP) PO SCH ×3 (03:45→14:40)
[2021-02-15] MEDS: GABAPENTIN 400 MG CAPSULE PO SCH ×2 (06:18→13:32)
[2021-02-15] MEDS: oxyCODONE HCL 5 MG TABLET PO PRN (06:18)
[2021-02-15] MEDS: INSULIN SLIDING SCALE (NOVOLOG) 1 VIAL SQ SCH ×2 (06:20→12:38)
[2021-02-15] MEDS: LIDOCAINE PATCH REMOVAL MC SCH (06:20)
[2021-02-15 08:16] LABS: BASO % 0.4 % (0-2.0); EOS % 1.5 % (0-4.5); HEMATOCRIT 24.3 % (32.4-45.2); MCH 25.4 pg (25.7-33.7); MCHC 32.9 g/dl (32.0-36.0); MEAN CELL VOLUME 77.1 fl (80-96); MEAN PLT VOLUME 8.6 fl (7.5-11.1); NEUT % 77.1 % (42.8-82.8); PLATELET COUNT 251 10^3/uL (134-434); RBC 3.15 M/mm3 (3.60-5.2); RDW 18.9 % (11.6-15.6)
[2021-02-15 08:32] LABS: CHLORIDE 104 mmol/L (98-107); SODIUM 136 mmol/L (136-145)
[2021-02-15 08:42] LABS: ALBUMIN 2.6 g/dl (3.4-5.0); ANION GAP 7 MMOL/L (8-16); BLOOD UREA NITROGEN 38.9 mg/dL (7-18); CO2 26 mmol/L (21-32)
[2021-02-15 08:43] LABS: GLUCOSE,RANDOM 109 mg/dL (74-106); MAGNESIUM 2.2 mg/dL (1.8-2.4)
[2021-02-15 08:45] LABS: SGPT/ALT < 6 U/L (13-61)
[2021-02-15 08:46] LABS: CREATININE 1.1 mg/dL (0.55-1.3); SGOT/AST 4 U/L (15-37)
[2021-02-15 08:47] LABS: BILIRUBIN,TOTAL 0.9 mg/dL (0.2-1); TOT PROT 5.6 g/dl (6.4-8.2)
[2021-02-15 08:48] LABS: ALK PHOS 76 U/L (45-117)
[2021-02-15] MEDS ORDERED: PT OWN MED DRAWER 7, Y5N ONE (09:42)
[2021-02-15] MEDS: HYDROCHLOROTHIAZIDE 25 MG TABLET (FP) PO SCH (09:45)
[2021-02-15] MEDS: CELECOXIB 200 MG CAPSULE PO SCH (09:45)
[2021-02-15] MEDS: PANTOPRAZOLE 40 MG TABLET PO SCH (09:45)
[2021-02-15] MEDS: POLYETHYLENE GLYCOL (HEALTHYLAX) 3350 17 GM PACKET PO SCH (09:46)
[2021-02-15] MEDS: DOCUSATE SODIUM 100 MG CAPSULE (FP) PO SCH (09:46)
[2021-02-15] MEDS ORDERED: CEFAZOLIN 1 GM in DEXTROSE 5%-WATER - 1 GM/50 ML IVPB IVPB SCH (10:00)
[2021-02-15] MEDS ORDERED: ceFAZolin SODIUM 1 GM VIAL ONE (10:27)
[2021-02-15] MEDS ORDERED: DEXTROSE 5%-WATER - 50 ML IVPB ONE (10:28)
[2021-02-15 13:34] VITALS: BP 101/47; PULSE 85; TEMP 98.5
== END 2021-02-15 15:19 | DRG 857 ==
LOC: JER 22:43 → OBSVTOIN 01-30 05:47 → JERBED 01-30 05:47 → UNDOADMOB 01-30 05:47 → INTOOBSV 01-30 05:47 → JERBED 01-30 22:08 → J8W 01-30 22:08 → JERBED 01-31 09:19 → OBSVTOIN 01-31 09:19 → J8W 01-31 09:19
PROVIDERS: ADMIT Internal Medicine; ATTEND Nurse Practitioner Acute Care
PROC: 0J970ZZ Drainage of Back Subcutaneous Tissue and Fascia, Open Approach (ICD-10-PCS; 2021-01-30)
PROC: 2W15X6Z Compression of Back using Pressure Dressing (ICD-10-PCS; 2021-01-30)
PROC: 0JB70ZZ Excision of Back Subcutaneous Tissue and Fascia, Open Approach (ICD-10-PCS; principal; 2021-01-30 15:00)
PROC: 30233N1 Transfusion of Nonautologous Red Blood Cells into Peripheral Vein, Percutaneous Approach (ICD-10-PCS; 2021-02-01)
PROC: 0JB70ZZ Excision of Back Subcutaneous Tissue and Fascia, Open Approach (ICD-10-PCS; 2021-02-04)
PROC: 0J970ZZ Drainage of Back Subcutaneous Tissue and Fascia, Open Approach (ICD-10-PCS; 2021-02-04)
PROC: 2W15X6Z Compression of Back using Pressure Dressing (ICD-10-PCS; 2021-02-04)
PROC: 0KBG0ZZ Excision of Left Trunk Muscle, Open Approach (ICD-10-PCS; 2021-02-12)
PROC: 0J970ZZ Drainage of Back Subcutaneous Tissue and Fascia, Open Approach (ICD-10-PCS; 2021-02-12)
PROC: 0WQL0ZZ Repair Lower Back, Open Approach (ICD-10-PCS; 2021-02-12)
PROC: 02HV33Z Insertion of Infusion Device into Superior Vena Cava, Percutaneous Approach (ICD-10-PCS; 2021-02-13)
PROC: B518ZZA Fluoroscopy of Superior Vena Cava, Guidance (ICD-10-PCS; 2021-02-13)
DX: T81.49XA Infection following a procedure, other surgical site, initial encounter (principal); N17.9 Acute kidney failure, unspecified; D62 Acute posthemorrhagic anemia; T81.31XA Disruption of external operation (surgical) wound, not elsewhere classified, initial encounter; A49.01 Methicillin susceptible Staphylococcus aureus infection, unspecified site; I10 Essential (primary) hypertension; F41.9 Anxiety disorder, unspecified; E11.9 Type 2 diabetes mellitus without complications; E78.5 Hyperlipidemia, unspecified; Y83.9 Surgical procedure, unspecified as the cause of abnormal reaction of the patient, or of later complication, without mention of misadventure at the time of the procedure
CPT/HCPCS: 36415; 36430; 36569; 70450-TC; 72131-TC; 73560-TC-LT-FY; 73560-TC-RT-FY; 80048; 80053; 82728; 82962; 83540; 83550; 83735; 84100; 85025; 85027; 85610; 85730; 86850; 86900; 86901; 86922; 87070; 87075; 87186; 87205; 93005; 93010; 94010; 94760; 97116-GP; 97161-GP; 99285-25; C9803; J0131; P9058; U0003; U0005